=== PATIENT | female | born 1945 | race Caucasian/White ===

== ENCOUNTER 2021-06-30 14:38 | Inpatient (IN) | payer MEDICARE, SELFPAY ==
[2021-06-30] VITALS (7 sets, daily range): BP systolic 112–125; BP diastolic 52–62; PULSE 82–105; RESP 14–18; TEMP 36.8–37.7; O2SAT 98–100; BMI 30.7
--- NOTE | 2021-06-30 14:58 | XRR_ITS ---
PROCEDURE INFORMATION: Exam: XR Chest Exam date and time: 06/30/2021 2:58 PM Age: 75 years old Clinical indication: Other: Weakness TECHNIQUE: Imaging protocol: XR of the chest. Views: 1 view. COMPARISON: No relevant prior studies available. FINDINGS: Lungs: There is linear atelectasis versus scarring in the left lung base. There is also some subtle ground-glass opacity in the left lung base concerning for early pneumonic infiltrate. The right lung is clear. Pleural spaces: Trace left pleural effusion versus pleural thickening is noted. Heart/Mediastinum: Unremarkable. No cardiomegaly. Bones/joints: No acute abnormality. XR/XR chest 1V portable [id number] IMPRESSION: 1. There is linear atelectasis versus scarring in the left lung base. 2. Linear atelectasis versus scarring left lower lobe with adjacent mild ground-glass opacity concerning for pneumonic infiltrate.
--- NOTE | 2021-06-30 14:58 | ECG_ITS ---
[facility] Test Date: 2021-06-30 Pat Name: Tamica Baltazar Department: Room: Gender: Female [employer]: : [id number] Requested By: Wilmer Antonio Order Number: [id number] Reading MD: Georgia Ulrich M.D. Measurements Intervals [place] Rate: 97 P: 76 MA: 158 QRS: 57 QRSD: 85 T: 100 QT: 362 QTc: 460 Interpretive Statements SINUS RHYTHM ST DEVIATION AND MODERATE T-WAVE ABNORMALITY, CONSIDER LATERAL ISCHEMIA [-0.1+ mV T-WAVE IN I/aVL/V5/V6] No previous ECG available for comparison Electronically Signed On 07-01-2021 19:12:29 CDT by Georgia Ulrich M.D. [email or web address]
--- NOTE | 2021-06-30 15:09 | W.ED.WEAKNES ---
Documented by User: MANINDER Marquez 06/30/21 15:50 HPI - Weakness General: Chief complaint: Weakness Stated complaint: GENERALIZED WEAKNESS/ CAN'T USE LEGS Time Seen by Provider: 06/30/21 14:42 History of Present Illness: HPI Narrative: Patient arrives with complaint of weakness for the last 3 months. Says she is got rheumatoid arthritis has been off some of her medicine. Said it just hurts for her to move. The last 3 days it has been worse. States she could not really get out of a chair today because it hurt in her legs and she just felt weak. Feels he might be anemic. MD Complaint: difficulty walking Onset (ago): month(s) Duration: constant and progressively worsening Location: generalized Associated symptoms: Reports no associated symptoms; Denies chest pain, chills, easy bruising, fever(s), headache(s), nausea or vomiting Review of Systems Const: Reports: other (Weakness); Denies: fever(s), chills or body aches Eyes: Denies: change in vision or blurry vision ENMT: Denies: throat pain or nasal congestion Card: Denies: chest pain or dyspnea on exertion Resp: Denies: dyspnea, productive cough or non-productive cough GI: Denies: abdominal pain, nausea or vomiting Musc: Denies: extremity pain Skin/Breast: Denies: rash Neuro: Denies: headache(s) Psych: Denies: anxiety or depression Regan/Lymph: Denies: easy bruising PFSH ED PFSH: Medical History Hypertension Intermittent atrial fibrillation Rheumatoid arthritis Surgical History Hx of cholecystectomy Physical Exam Const: COMMON NORMALS: no acute distress, average body habitus and patient oriented x3 HENMT: COMMON NORMALS: normocephalic HEAD & SCALP: normal to inspection and normocephalic FACE & SINUS: normal facial exam Eye: COMMON NORMALS: conjunctivae normal GENERAL EYE: appearance normal, both eyes and all related structures CONJUNCTIVA: Yes conjunctivae normal Neck/C-Spine: COMMON NORMALS: no JVD Chest: COMMONS NORMALS: normal inspection of the chest Resp: COMMON NORMALS: normal respiratory effort and clear to auscultation bilaterally AUSCULTATION: clear to auscultation bilaterally Cardio: COMMON NORMALS: no JVD, regular rate and regular rhythm RATE: regular rate RHYTHM: regular rhythm GI: COMMON NORMALS: Normal to inspection, nondistended, normoactive bowel sounds present Extremity: COMMON NORMALS: normal to inspection and full ROM NARRATIVE EXTREMITY EXAM: Able to move legs Neuro: COMMON NORMALS: patient oriented x3 Course Vital Signs: Vital signs: Vital Signs Temperature 97.7 F 07/02/21 11:12 Pulse Rate 76 07/02/21 11:12 Respiratory Rate 16 07/02/21 11:12 Blood Pressure 100/54 07/02/21 11:12 Pulse Oximetry 98 07/02/21 11:12 MDM - Weakness Lab Data: Labs: Lab Results 06/30/21 06/30/21 06/30/21 Range/Units 16:24 16:24 16:24 WBC 11.5 H (4.0-10.0) 10^3/ uL RBC 1.30 L (4.1-5.3) 10^6/u L Hgb 3.9 L* (11.5-15.3) g/dL Hct 13.1 L* (37.0-47.0) % MCV 100.8 H (81-99) fl MCH 30.0 (28.0-34.0) pg MCHC 29.8 L (30.0-36.0) g/dL RDW 15.2 H (12.1-15.1) % Plt Count 225 (130-400) 10^3/c mm MPV 10.6 H (7.4-10.4) fL Neut % (Auto) 72.8 % Lymph % (Auto) 15.7 % [place] % (Auto) 10.0 % Eos % (Auto) 0.0 % Baso % (Auto) 0.1 % Reticulocyte % (Au to) (0.5-2.0) % Neut # (Auto) 8.33 H (1.8-7.7) 10^3/u L Lymph # (Auto) 1.8 (0.8-4.8) 10^3/u L [place] # (Auto) 1.2 H (0.2-0.9) 10^3/u L Eos # (Auto) 0.0 (0.0-0.8) 10^3/u L Baso # (Auto) 0.0 (0.0-0.1) 10^3/u L Nucleated RBC % (a uto) 0.9 % Nucleated RBCs # 0.1 /100WBC Retic Production I ndex Haptoglobin (30-200) mg/L PT 16.10 H (12.1-14.9) SECO NDS INR 1.25 H (0.8-1.2) Sodium 136 (136-145) mmol/L Potassium 4.2 (3.5-5.1) mmol/L Chloride 104 (98-107) mmol/L Carbon Dioxide 24 (22-29) mmol/L Anion Gap 12.2 (5-19) BUN 32 H (8-23) mg/dL Creatinine 0.8 (0.5-0.9) mg/dL GFR Calculation Not Reportable Glucose 119 H (65-115) mg/dL Calculated Osmolal ity 290 (285-295) mOsm/k g Calcium 8.2 L (8.5-10.5) mg/dL Iron (37-145) ug/dL TIBC mcg/dl % Saturation (20-50) % Unsat Iron Binding (112-347) ug/dL Ferritin (15-150) ng/mL GGT (5-36) U/L AST (0-32) U/L ALT (0-33) U/L Lactate Dehydrogen ase (135-214) U/L Creatine Kinase 29 (26-192) U/L Troponin T Baselin e (0-10) ng/L C-Reactive Protein 0.9 (0.0-4.9) mg/L Vitamin B12 (232-1245) pg/mL Folate (4.8-37.3) ng/mL Blood Type Rho(D) Type Antibody Screen Crossmatch 06/30/21 06/30/21 06/30/21 Range/Units 16:24 16:24 16:24 WBC (4.0-10.0) 10^3/ uL RBC (4.1-5.3) 10^6/u L Hgb (11.5-15.3) g/dL Hct (37.0-47.0) % MCV (81-99) fl MCH (28.0-34.0) pg MCHC (30.0-36.0) g/dL RDW (12.1-15.1) % Plt Count (130-400) 10^3/c mm MPV (7.4-10.4) fL Neut % (Auto) % Lymph % (Auto) % [place] % (Auto) % Eos % (Auto) % Baso % (Auto) % Reticulocyte % (Au to) (0.5-2.0) % Neut # (Auto) (1.8-7.7) 10^3/u L Lymph # (Auto) (0.8-4.8) 10^3/u L [place] # (Auto) (0.2-0.9) 10^3/u L Eos # (Auto) (0.0-0.8) 10^3/u L Baso # (Auto) (0.0-0.1) 10^3/u L Nucleated RBC % (a uto) % Nucleated RBCs # /100WBC Retic Production I ndex Haptoglobin 129.0 (30-200) mg/L PT (12.1-14.9) SECO NDS INR (0.8-1.2) Sodium (136-145) mmol/L Potassium (3.5-5.1) mmol/L Chloride (98-107) mmol/L Carbon Dioxide (22-29) mmol/L Anion Gap (5-19) BUN (8-23) mg/dL Creatinine (0.5-0.9) mg/dL GFR Calculation Glucose (65-115) mg/dL Calculated Osmolal ity (285-295) mOsm/k g Calcium (8.5-10.5) mg/dL Iron 9 L (37-145) ug/dL TIBC 295 mcg/dl % Saturation 3.0 L (20-50) % Unsat Iron Binding 286 (112-347) ug/dL Ferritin 8 L (15-150) ng/mL GGT 10 (5-36) U/L AST 14 (0-32) U/L ALT 11 (0-33) U/L Lactate Dehydrogen ase 119 L (135-214) U/L Creatine Kinase (26-192) U/L Troponin T Baselin e 12 H (0-10) ng/L C-Reactive Protein (0.0-4.9) mg/L Vitamin B12 618 (232-1245) pg/mL Folate (4.8-37.3) ng/mL Blood Type Rho(D) Type Antibody Screen Crossmatch 06/30/21 06/30/21 06/30/21 Range/Units 16:24 16:24 17:42 WBC (4.0-10.0) 10^3/ uL RBC (4.1-5.3) 10^6/u L Hgb (11.5-15.3) g/dL Hct (37.0-47.0) % MCV (81-99) fl MCH (28.0-34.0) pg MCHC (30.0-36.0) g/dL RDW (12.1-15.1) % Plt Count (130-400) 10^3/c mm MPV (7.4-10.4) fL Neut % (Auto) % Lymph % (Auto) % [place] % (Auto) % Eos % (Auto) % Baso % (Auto) % Reticulocyte % (Au to) 10.6 H (0.5-2.0) % Neut # (Auto) (1.8-7.7) 10^3/u L Lymph # (Auto) (0.8-4.8) 10^3/u L [place] # (Auto) (0.2-0.9) 10^3/u L Eos # (Auto) (0.0-0.8) 10^3/u L Baso # (Auto) (0.0-0.1) 10^3/u L Nucleated RBC % (a uto) % Nucleated RBCs # /100WBC Retic Production I ndex Haptoglobin (30-200) mg/L PT (12.1-14.9) SECO NDS INR (0.8-1.2) Sodium (136-145) mmol/L Potassium (3.5-5.1) mmol/L Chloride (98-107) mmol/L Carbon Dioxide (22-29) mmol/L Anion Gap (5-19) BUN (8-23) mg/dL Creatinine (0.5-0.9) mg/dL GFR Calculation Glucose (65-115) mg/dL Calculated Osmolal ity (285-295) mOsm/k g Calcium (8.5-10.5) mg/dL Iron (37-145) ug/dL TIBC mcg/dl % Saturation (20-50) % Unsat Iron Binding (112-347) ug/dL Ferritin (15-150) ng/mL GGT (5-36) U/L AST (0-32) U/L ALT (0-33) U/L Lactate Dehydrogen ase (135-214) U/L Creatine Kinase (26-192) U/L Troponin T Baselin e (0-10) ng/L C-Reactive Protein (0.0-4.9) mg/L Vitamin B12 (232-1245) pg/mL Folate > 20.0 (4.8-37.3) ng/mL Blood Type O Positive Rho(D) Type Positive Antibody Screen Negative Crossmatch See Detail 06/30/21 Range/Units 17:42 WBC (4.0-10.0) 10^3/ uL RBC (4.1-5.3) 10^6/u L Hgb (11.5-15.3) g/dL Hct 12.8 L* (37.0-47.0) % MCV (81-99) fl MCH (28.0-34.0) pg MCHC (30.0-36.0) g/dL RDW (12.1-15.1) % Plt Count (130-400) 10^3/c mm MPV (7.4-10.4) fL Neut % (Auto) % Lymph % (Auto) % [place] % (Auto) % Eos % (Auto) % Baso % (Auto) % Reticulocyte % (Au to) 10.8 H (0.5-2.0) % Neut # (Auto) (1.8-7.7) 10^3/u L Lymph # (Auto) (0.8-4.8) 10^3/u L [place] # (Auto) (0.2-0.9) 10^3/u L Eos # (Auto) (0.0-0.8) 10^3/u L Baso # (Auto) (0.0-0.1) 10^3/u L Nucleated RBC % (a uto) % Nucleated RBCs # /100WBC Retic Production I ndex 3.46 Haptoglobin (30-200) mg/L PT (12.1-14.9) SECO NDS INR (0.8-1.2) Sodium (136-145) mmol/L Potassium (3.5-5.1) mmol/L Chloride (98-107) mmol/L Carbon Dioxide (22-29) mmol/L Anion Gap (5-19) BUN (8-23) mg/dL Creatinine (0.5-0.9) mg/dL GFR Calculation Glucose (65-115) mg/dL Calculated Osmolal ity (285-295) mOsm/k g Calcium (8.5-10.5) mg/dL Iron (37-145) ug/dL TIBC mcg/dl % Saturation (20-50) % Unsat Iron Binding (112-347) ug/dL Ferritin (15-150) ng/mL GGT (5-36) U/L AST (0-32) U/L ALT (0-33) U/L Lactate Dehydrogen ase (135-214) U/L Creatine Kinase (26-192) U/L Troponin T Baselin e (0-10) ng/L C-Reactive Protein (0.0-4.9) mg/L Vitamin B12 (232-1245) pg/mL Folate (4.8-37.3) ng/mL Blood Type Rho(D) Type Antibody Screen Crossmatch EKG Data^: EKG 1: EKG interpretation date: 06/30/21 EKG interpretation time: 15:40 Computer generated interpretation: Sinus rhythm with ST deviation moderate T wave abnormality slight elevation in aVR V1 depression V4 V5 ventricular rate 97 bpm ND interval 158 ms QRS duration 85 ms QT 362 ms Discharge Plan Discharge Patient Disposition: Admitted As Inpatient Admit Provider: Linh Hough Clinical Impression: Severe anemia Condition: Stable Sign Out Sign Out Data: Patient Sign Out occurred on 06/30/21 at 17:04. Patient's care was discussed, and care was transferred from to ALETHEA Gao. Coding Level of Care Code ED Inspector And Hand Packager for Chg Fwd Exam Comprehensive Documented by User: ALETHEA Gao 07/01/21 03:46 HPI - Weakness General: Chief complaint: Weakness Stated complaint: GENERALIZED WEAKNESS/ CAN'T USE LEGS Time Seen by Provider: 06/30/21 14:42 History of Present Illness: HPI Narrative: Patient states that she has had some bleeding hemorrhoids for the past 3 months as well. Every time she had a bowel movement she would have red blood in the toilet and when she wiped. Bleeding only occurred when having a bowel movement and denies any bleeding in between bowel movements. She says the bleeding during a bowel movement stopped approximately 3 to 4 days ago. Patient did states she has been taking Eliquis for almost 2 years now. She reports having generalized weakness and aches and pain in extremities when active. Review of Systems GI: Reports: hematochezia (Reports hemorrhoids and bloody stool for 3 months-resolved 4 days ago) PENDING SALE TO [facility] ED PFSH: Medical History Hypertension Intermittent atrial fibrillation Rheumatoid arthritis Surgical History Hx of cholecystectomy Course Consultations: Consultation #1: I contacted Dr. Hough and told her about patient case and her hemoglobin level of 3.9. She wanted me to have patient admitted and to order a CT of the chest abdomen and pelvis. Vital Signs: Vital signs: Vital Signs Temperature 97.7 F 07/02/21 11:12 Pulse Rate 76 07/02/21 11:12 Respiratory Rate 16 07/02/21 11:12 Blood Pressure 100/54 07/02/21 11:12 Pulse Oximetry 98 07/02/21 11:12 MDM - Weakness MDM Narrative: Medical decision making narrative: I took over patient care from Wilmer Antonio is a nurse practitioner at 5 PM. Patient has a history of A. fib and is currently on Eliquis. He performed initial history physical exam and lab and imaging work-up. Patient is here in the ED for generalized weakness and pain whenever she is up moving around. She also reports having some hemorrhoids that have been bleeding whenever she has a bowel movement for the past 3 months but have since resolved approximately 4 days ago. Denies any bleeding from her rectum in between bowel movements. Patient's hemoglobin was 3.9 and her hematocrit was 13.1. Rest of CBC and CMP were unremarkable. I performed a type and screen and had 2 units of RBCs transfused and started here in the ED. I contacted Dr. Reyes of the hospitalist on-call and told her about patient case and she accepted admission. She wanted me also to add a CT of her chest abdomen and pelvis which came back with no acute findings. I talked with Dr. Hudson and told him about Dr. Hough excepting patient for admission. Dr. Hudson placed the admitting orders. Lab Data: Attestation: I reviewed the patient's lab results. Labs: Lab Results 06/30/21 06/30/21 06/30/21 Range/Units 16:24 16:24 16:24 WBC 11.5 H (4.0-10.0) 10^3/ uL RBC 1.30 L (4.1-5.3) 10^6/u L Hgb 3.9 L* (11.5-15.3) g/dL Hct 13.1 L* (37.0-47.0) % MCV 100.8 H (81-99) fl MCH 30.0 (28.0-34.0) pg MCHC 29.8 L (30.0-36.0) g/dL RDW 15.2 H (12.1-15.1) % Plt Count 225 (130-400) 10^3/c mm MPV 10.6 H (7.4-10.4) fL Neut % (Auto) 72.8 % Lymph % (Auto) 15.7 % [place] % (Auto) 10.0 % Eos % (Auto) 0.0 % Baso % (Auto) 0.1 % Reticulocyte % (Au to) (0.5-2.0) % Neut # (Auto) 8.33 H (1.8-7.7) 10^3/u L Lymph # (Auto) 1.8 (0.8-4.8) 10^3/u L [place] # (Auto) 1.2 H (0.2-0.9) 10^3/u L Eos # (Auto) 0.0 (0.0-0.8) 10^3/u L Baso # (Auto) 0.0 (0.0-0.1) 10^3/u L Nucleated RBC % (a uto) 0.9 % Nucleated RBCs # 0.1 /100WBC Retic Production I ndex Haptoglobin (30-200) mg/L PT 16.10 H (12.1-14.9) SECO NDS INR 1.25 H (0.8-1.2) Sodium 136 (136-145) mmol/L Potassium 4.2 (3.5-5.1) mmol/L Chloride 104 (98-107) mmol/L Carbon Dioxide 24 (22-29) mmol/L Anion Gap 12.2 (5-19) BUN 32 H (8-23) mg/dL Creatinine 0.8 (0.5-0.9) mg/dL GFR Calculation Not Reportable Glucose 119 H (65-115) mg/dL Calculated Osmolal ity 290 (285-295) mOsm/k g Calcium 8.2 L (8.5-10.5) mg/dL Iron (37-145) ug/dL TIBC mcg/dl % Saturation (20-50) % Unsat Iron Binding (112-347) ug/dL Ferritin (15-150) ng/mL GGT (5-36) U/L AST (0-32) U/L ALT (0-33) U/L Lactate Dehydrogen ase (135-214) U/L Creatine Kinase 29 (26-192) U/L Troponin T Baselin e (0-10) ng/L C-Reactive Protein 0.9 (0.0-4.9) mg/L Vitamin B12 (232-1245) pg/mL Folate (4.8-37.3) ng/mL Blood Type Rho(D) Type Antibody Screen Crossmatch 06/30/21 06/30/21 06/30/21 Range/Units 16:24 16:24 16:24 WBC (4.0-10.0) 10^3/ uL RBC (4.1-5.3) 10^6/u L Hgb (11.5-15.3) g/dL Hct (37.0-47.0) % MCV (81-99) fl MCH (28.0-34.0) pg MCHC (30.0-36.0) g/dL RDW (12.1-15.1) % Plt Count (130-400) 10^3/c mm MPV (7.4-10.4) fL Neut % (Auto) % Lymph % (Auto) % [place] % (Auto) % Eos % (Auto) % Baso % (Auto) % Reticulocyte % (Au to) (0.5-2.0) % Neut # (Auto) (1.8-7.7) 10^3/u L Lymph # (Auto) (0.8-4.8) 10^3/u L [place] # (Auto) (0.2-0.9) 10^3/u L Eos # (Auto) (0.0-0.8) 10^3/u L Baso # (Auto) (0.0-0.1) 10^3/u L Nucleated RBC % (a uto) % Nucleated RBCs # /100WBC Retic Production I ndex Haptoglobin 129.0 (30-200) mg/L PT (12.1-14.9) SECO NDS INR (0.8-1.2) Sodium (136-145) mmol/L Potassium (3.5-5.1) mmol/L Chloride (98-107) mmol/L Carbon Dioxide (22-29) mmol/L Anion Gap (5-19) BUN (8-23) mg/dL Creatinine (0.5-0.9) mg/dL GFR Calculation Glucose (65-115) mg/dL Calculated Osmolal ity (285-295) mOsm/k g Calcium (8.5-10.5) mg/dL Iron 9 L (37-145) ug/dL TIBC 295 mcg/dl % Saturation 3.0 L (20-50) % Unsat Iron Binding 286 (112-347) ug/dL Ferritin 8 L (15-150) ng/mL GGT 10 (5-36) U/L AST 14 (0-32) U/L ALT 11 (0-33) U/L Lactate Dehydrogen ase 119 L (135-214) U/L Creatine Kinase (26-192) U/L Troponin T Baselin e 12 H (0-10) ng/L C-Reactive Protein (0.0-4.9) mg/L Vitamin B12 618 (232-1245) pg/mL Folate (4.8-37.3) ng/mL Blood Type Rho(D) Type Antibody Screen Crossmatch 06/30/21 06/30/21 06/30/21 Range/Units 16:24 16:24 17:42 WBC (4.0-10.0) 10^3/ uL RBC (4.1-5.3) 10^6/u L Hgb (11.5-15.3) g/dL Hct (37.0-47.0) % MCV (81-99) fl MCH (28.0-34.0) pg MCHC (30.0-36.0) g/dL RDW (12.1-15.1) % Plt Count (130-400) 10^3/c mm MPV (7.4-10.4) fL Neut % (Auto) % Lymph % (Auto) % [place] % (Auto) % Eos % (Auto) % Baso % (Auto) % Reticulocyte % (Au to) 10.6 H (0.5-2.0) % Neut # (Auto) (1.8-7.7) 10^3/u L Lymph # (Auto) (0.8-4.8) 10^3/u L [place] # (Auto) (0.2-0.9) 10^3/u L Eos # (Auto) (0.0-0.8) 10^3/u L Baso # (Auto) (0.0-0.1) 10^3/u L Nucleated RBC % (a uto) % Nucleated RBCs # /100WBC Retic Production I ndex Haptoglobin (30-200) mg/L PT (12.1-14.9) SECO NDS INR (0.8-1.2) Sodium (136-145) mmol/L Potassium (3.5-5.1) mmol/L Chloride (98-107) mmol/L Carbon Dioxide (22-29) mmol/L Anion Gap (5-19) BUN (8-23) mg/dL Creatinine (0.5-0.9) mg/dL GFR Calculation Glucose (65-115) mg/dL Calculated Osmolal ity (285-295) mOsm/k g Calcium (8.5-10.5) mg/dL Iron (37-145) ug/dL TIBC mcg/dl % Saturation (20-50) % Unsat Iron Binding (112-347) ug/dL Ferritin (15-150) ng/mL GGT (5-36) U/L AST (0-32) U/L ALT (0-33) U/L Lactate Dehydrogen ase (135-214) U/L Creatine Kinase (26-192) U/L Troponin T Baselin e (0-10) ng/L C-Reactive Protein (0.0-4.9) mg/L Vitamin B12 (232-1245) pg/mL Folate > 20.0 (4.8-37.3) ng/mL Blood Type O Positive Rho(D) Type Positive Antibody Screen Negative Crossmatch See Detail 06/30/21 Range/Units 17:42 WBC (4.0-10.0) 10^3/ uL RBC (4.1-5.3) 10^6/u L Hgb (11.5-15.3) g/dL Hct 12.8 L* (37.0-47.0) % MCV (81-99) fl MCH (28.0-34.0) pg MCHC (30.0-36.0) g/dL RDW (12.1-15.1) % Plt Count (130-400) 10^3/c mm MPV (7.4-10.4) fL Neut % (Auto) % Lymph % (Auto) % [place] % (Auto) % Eos % (Auto) % Baso % (Auto) % Reticulocyte % (Au to) 10.8 H (0.5-2.0) % Neut # (Auto) (1.8-7.7) 10^3/u L Lymph # (Auto) (0.8-4.8) 10^3/u L [place] # (Auto) (0.2-0.9) 10^3/u L Eos # (Auto) (0.0-0.8) 10^3/u L Baso # (Auto) (0.0-0.1) 10^3/u L Nucleated RBC % (a uto) % Nucleated RBCs # /100WBC Retic Production I ndex 3.46 Haptoglobin (30-200) mg/L PT (12.1-14.9) SECO NDS INR (0.8-1.2) Sodium (136-145) mmol/L Potassium (3.5-5.1) mmol/L Chloride (98-107) mmol/L Carbon Dioxide (22-29) mmol/L Anion Gap (5-19) BUN (8-23) mg/dL Creatinine (0.5-0.9) mg/dL GFR Calculation Glucose (65-115) mg/dL Calculated Osmolal ity (285-295) mOsm/k g Calcium (8.5-10.5) mg/dL Iron (37-145) ug/dL TIBC mcg/dl % Saturation (20-50) % Unsat Iron Binding (112-347) ug/dL Ferritin (15-150) ng/mL GGT (5-36) U/L AST (0-32) U/L ALT (0-33) U/L Lactate Dehydrogen ase (135-214) U/L Creatine Kinase (26-192) U/L Troponin T Baselin e (0-10) ng/L C-Reactive Protein (0.0-4.9) mg/L Vitamin B12 (232-1245) pg/mL Folate (4.8-37.3) ng/mL Blood Type Rho(D) Type Antibody Screen Crossmatch Imaging Data^: CXR: Attestation: I personally reviewed and interpreted this imaging study as follows: Radiologist's impression: [address] [id number] ReportSigned Patient: Charisse Baltazar #: [id number]: [id number]#:[id number]/Sex: 75 / FADM Date: 06/30/21Loc: ERRoom/Bed:Attending Dr: Ordering Provider/Ordering MD: Awilda Antonoi Sr, [facility] Date of Service: 06/30/21 Procedure(s): XR chest 1V portable [id number] Accession Number(s): [id number] Report Number: [id number] PROCEDURE INFORMATION: Exam: XR Chest Exam date and time: 06/30/2021 2:58 PM Age: 75 years old Clinical indication: Other: Weakness TECHNIQUE: Imaging protocol: XR of the chest. Views: 1 view. COMPARISON: No relevant prior studies available. FINDINGS: Lungs: There is linear atelectasis versus scarring in the left lung base. There is also some subtle ground-glass opacity in the left lung base concerning for early pneumonic infiltrate. The right lung is clear. Pleural spaces: Trace left pleural effusion versus pleural thickening is noted. Heart/Mediastinum: Unremarkable. No cardiomegaly. Bones/joints: No acute abnormality. XR/XR chest 1V portable [id number] IMPRESSION: 1. There is linear atelectasis versus scarring in the left lung base. 2. Linear atelectasis versus scarring left lower lobe with adjacent mild ground-glass opacity concerning for pneumonic infiltrate. Dictated By:Kyra Pinedaigned By:Rodri Pineda Date/Time:06/30/21 1623DD/ [address]: Attestation: I personally reviewed and interpreted this imaging study as follows: Radiologist's impression: [address] [id number] Scan ReportSigned Patient: Charisse Baltazar #: [id number]: [id number]#:[id number]/Sex: 75 / FADM Date: 06/30/21Loc: ERRoom/Bed:Attending Dr: Ordering Provider/Ordering MD: Edin Tineo Date of Service: 06/30/21 Procedure(s): CT chest abd pel w con* Accession Number(s): [id number] Report Number: [id number] PROCEDURE INFORMATION: Exam: CT Chest With Contrast; Diagnostic Exam date and time: 06/30/2021 7:21 PM Age: 75 years old Clinical indication: Constipation and nausea and vomiting; Other: Weakness; Prior surgery; Surgery type: Gb, tubal TECHNIQUE: Imaging protocol: Diagnostic computed tomography of the chest with contrast. Radiation optimization: All CT scans at this facility use at least one of these dose optimization techniques: automated exposure control; mA and/or kV adjustment per patient size (includes targeted exams where dose is matched to clinical indication); or iterative reconstruction. Contrast material: OMNI 300; Contrast volume: 95 ml; Contrast route: INTRAVENOUS (IV); COMPARISON: CR (CHEST, ) 06/30/2021 3:06 PM RADIATION DOSE METRICS: Total DLP (mGy-cm): 1335.23 FINDINGS: Lungs: Unremarkable. No consolidation. No masses. Pleural spaces: Unremarkable. No pneumothorax. No pleural effusion. Heart: Unremarkable. No cardiomegaly. No pericardial effusion. Aorta: Unremarkable. No aortic aneurysm. Lymph nodes: Unremarkable. No enlarged lymph nodes. Bones/joints: Unremarkable. No acute fracture. Soft tissues: Unremarkable. IMPRESSION: No acute findings. PROCEDURE INFORMATION: Exam: CT Abdomen And Pelvis With Contrast Exam date and time: 06/30/2021 7:21 PM Age: 75 years old Clinical indication: Constipation and nausea and vomiting; Other: Weakness; Prior surgery; Surgery type: Gb, tubal TECHNIQUE: Imaging protocol: Computed tomography of the abdomen and pelvis with contrast. Radiation optimization: All CT scans at this facility use at least one of these dose optimization techniques: automated exposure control; mA and/or kV adjustment per patient size (includes targeted exams where dose is matched to clinical indication); or iterative reconstruction. Contrast material: OMNI 300; Contrast volume: 95 ml; Contrast route: INTRAVENOUS (IV); COMPARISON: CR (CHEST, ) 06/30/2021 3:06 PM RADIATION DOSE METRICS: Total DLP (mGy-cm): 1335.23 FINDINGS: Liver: Normal. No mass. Gallbladder and bile ducts: Cholecystectomy. Nondilated biliary system. Pancreas: Normal. No ductal dilation. Spleen: Normal. No splenomegaly. Adrenal glands: Normal. No mass. Kidneys and ureters: Mild diffuse bilateral renal cortical volume loss worse on left than right. No hydronephrosis or renal stones. Stomach and bowel: Large fecal volume. No inflammatory bowel wall thickening changes. Negative for bowel obstruction or perforation. No focal bowel wall mass. Appendix: No evidence of appendicitis. Intraperitoneal space: Unremarkable. No free air. No significant fluid collection. Vasculature: Unremarkable. No abdominal aortic aneurysm. Lymph nodes: Unremarkable. No enlarged lymph nodes. Urinary bladder: Unremarkable as visualized. Reproductive: Unremarkable as visualized. Bones/joints: Unremarkable. No acute fracture. Soft tissues: Unremarkable. CT/CT chest abd pel w con* IMPRESSION: Negative for acute abdominopelvic pathology. Radiation Dose CTDIVOL = (mGy): DLP = 1335.23~1335.23 (mGy-cm) Dictated By:Santosh Cornell By:Santosh Cornell Date/Time:06/30/21 2102DD/ 2100 Discharge Plan Discharge Patient Disposition: Admitted As Inpatient Admit Provider: Linh Hough Clinical Impression: Severe anemia Condition: Stable Sign Out Sign Out Data: Patient Sign Out occurred on 06/30/21 at 17:04. Patient's care was discussed, and care was transferred from to [facility]. Coding Level of Care Code ED Inspector And Hand Packager for Chg Fwd Exam Comprehensive Documented by User: Carli Hudson MD 07/02/21 11:54 HPI - Weakness General: Chief complaint: Weakness Stated complaint: GENERALIZED WEAKNESS/ CAN'T USE LEGS Time Seen by Provider: 06/30/21 14:42 PFSH ED PFSH: Medical History Hypertension Intermittent atrial fibrillation Rheumatoid arthritis Surgical History Hx of cholecystectomy Course Vital Signs: Vital signs: Vital Signs Temperature 97.7 F 07/02/21 11:12 Pulse Rate 76 07/02/21 11:12 Respiratory Rate 16 07/02/21 11:12 Blood Pressure 100/54 07/02/21 11:12 Pulse Oximetry 98 07/02/21 11:12 MDM - Weakness Lab Data: Labs: Lab Results 06/30/21 06/30/21 06/30/21 Range/Units 16:24 16:24 16:24 WBC 11.5 H (4.0-10.0) 10^3/ uL RBC 1.30 L (4.1-5.3) 10^6/u L Hgb 3.9 L* (11.5-15.3) g/dL Hct 13.1 L* (37.0-47.0) % MCV 100.8 H (81-99) fl MCH 30.0 (28.0-34.0) pg MCHC 29.8 L (30.0-36.0) g/dL RDW 15.2 H (12.1-15.1) % Plt Count 225 (130-400) 10^3/c mm MPV 10.6 H (7.4-10.4) fL Neut % (Auto) 72.8 % Lymph % (Auto) 15.7 % [place] % (Auto) 10.0 % Eos % (Auto) 0.0 % Baso % (Auto) 0.1 % Reticulocyte % (Au to) (0.5-2.0) % Neut # (Auto) 8.33 H (1.8-7.7) 10^3/u L Lymph # (Auto) 1.8 (0.8-4.8) 10^3/u L [place] # (Auto) 1.2 H (0.2-0.9) 10^3/u L Eos # (Auto) 0.0 (0.0-0.8) 10^3/u L Baso # (Auto) 0.0 (0.0-0.1) 10^3/u L Nucleated RBC % (a uto) 0.9 % Nucleated RBCs # 0.1 /100WBC Retic Production I ndex Haptoglobin (30-200) mg/L PT 16.10 H (12.1-14.9) SECO NDS INR 1.25 H (0.8-1.2) Sodium 136 (136-145) mmol/L Potassium 4.2 (3.5-5.1) mmol/L Chloride 104 (98-107) mmol/L Carbon Dioxide 24 (22-29) mmol/L Anion Gap 12.2 (5-19) BUN 32 H (8-23) mg/dL Creatinine 0.8 (0.5-0.9) mg/dL GFR Calculation Not Reportable Glucose 119 H (65-115) mg/dL Calculated Osmolal ity 290 (285-295) mOsm/k g Calcium 8.2 L (8.5-10.5) mg/dL Iron (37-145) ug/dL TIBC mcg/dl % Saturation (20-50) % Unsat Iron Binding (112-347) ug/dL Ferritin (15-150) ng/mL GGT (5-36) U/L AST (0-32) U/L ALT (0-33) U/L Lactate Dehydrogen ase (135-214) U/L Creatine Kinase 29 (26-192) U/L Troponin T Baselin e (0-10) ng/L C-Reactive Protein 0.9 (0.0-4.9) mg/L Vitamin B12 (232-1245) pg/mL Folate (4.8-37.3) ng/mL Blood Type Rho(D) Type Antibody Screen Crossmatch 06/30/21 06/30/21 06/30/21 Range/Units 16:24 16:24 16:24 WBC (4.0-10.0) 10^3/ uL RBC (4.1-5.3) 10^6/u L Hgb (11.5-15.3) g/dL Hct (37.0-47.0) % MCV (81-99) fl MCH (28.0-34.0) pg MCHC (30.0-36.0) g/dL RDW (12.1-15.1) % Plt Count (130-400) 10^3/c mm MPV (7.4-10.4) fL Neut % (Auto) % Lymph % (Auto) % [place] % (Auto) % Eos % (Auto) % Baso % (Auto) % Reticulocyte % (Au to) (0.5-2.0) % Neut # (Auto) (1.8-7.7) 10^3/u L Lymph # (Auto) (0.8-4.8) 10^3/u L [place] # (Auto) (0.2-0.9) 10^3/u L Eos # (Auto) (0.0-0.8) 10^3/u L Baso # (Auto) (0.0-0.1) 10^3/u L Nucleated RBC % (a uto) % Nucleated RBCs # /100WBC Retic Production I ndex Haptoglobin 129.0 (30-200) mg/L PT (12.1-14.9) SECO NDS INR (0.8-1.2) Sodium (136-145) mmol/L Potassium (3.5-5.1) mmol/L Chloride (98-107) mmol/L Carbon Dioxide (22-29) mmol/L Anion Gap (5-19) BUN (8-23) mg/dL Creatinine (0.5-0.9) mg/dL GFR Calculation Glucose (65-115) mg/dL Calculated Osmolal ity (285-295) mOsm/k g Calcium (8.5-10.5) mg/dL Iron 9 L (37-145) ug/dL TIBC 295 mcg/dl % Saturation 3.0 L (20-50) % Unsat Iron Binding 286 (112-347) ug/dL Ferritin 8 L (15-150) ng/mL GGT 10 (5-36) U/L AST 14 (0-32) U/L ALT 11 (0-33) U/L Lactate Dehydrogen ase 119 L (135-214) U/L Creatine Kinase (26-192) U/L Troponin T Baselin e 12 H (0-10) ng/L C-Reactive Protein (0.0-4.9) mg/L Vitamin B12 618 (232-1245) pg/mL Folate (4.8-37.3) ng/mL Blood Type Rho(D) Type Antibody Screen Crossmatch 06/30/21 06/30/21 06/30/21 Range/Units 16:24 16:24 17:42 WBC (4.0-10.0) 10^3/ uL RBC (4.1-5.3) 10^6/u L Hgb (11.5-15.3) g/dL Hct (37.0-47.0) % MCV (81-99) fl MCH (28.0-34.0) pg MCHC (30.0-36.0) g/dL RDW (12.1-15.1) % Plt Count (130-400) 10^3/c mm MPV (7.4-10.4) fL Neut % (Auto) % Lymph % (Auto) % [place] % (Auto) % Eos % (Auto) % Baso % (Auto) % Reticulocyte % (Au to) 10.6 H (0.5-2.0) % Neut # (Auto) (1.8-7.7) 10^3/u L Lymph # (Auto) (0.8-4.8) 10^3/u L [place] # (Auto) (0.2-0.9) 10^3/u L Eos # (Auto) (0.0-0.8) 10^3/u L Baso # (Auto) (0.0-0.1) 10^3/u L Nucleated RBC % (a uto) % Nucleated RBCs # /100WBC Retic Production I ndex Haptoglobin (30-200) mg/L PT (12.1-14.9) SECO NDS INR (0.8-1.2) Sodium (136-145) mmol/L Potassium (3.5-5.1) mmol/L Chloride (98-107) mmol/L Carbon Dioxide (22-29) mmol/L Anion Gap (5-19) BUN (8-23) mg/dL Creatinine (0.5-0.9) mg/dL GFR Calculation Glucose (65-115) mg/dL Calculated Osmolal ity (285-295) mOsm/k g Calcium (8.5-10.5) mg/dL Iron (37-145) ug/dL TIBC mcg/dl % Saturation (20-50) % Unsat Iron Binding (112-347) ug/dL Ferritin (15-150) ng/mL GGT (5-36) U/L AST (0-32) U/L ALT (0-33) U/L Lactate Dehydrogen ase (135-214) U/L Creatine Kinase (26-192) U/L Troponin T Baselin e (0-10) ng/L C-Reactive Protein (0.0-4.9) mg/L Vitamin B12 (232-1245) pg/mL Folate > 20.0 (4.8-37.3) ng/mL Blood Type O Positive Rho(D) Type Positive Antibody Screen Negative Crossmatch See Detail 06/30/21 Range/Units 17:42 WBC (4.0-10.0) 10^3/ uL RBC (4.1-5.3) 10^6/u L Hgb (11.5-15.3) g/dL Hct 12.8 L* (37.0-47.0) % MCV (81-99) fl MCH (28.0-34.0) pg MCHC (30.0-36.0) g/dL RDW (12.1-15.1) % Plt Count (130-400) 10^3/c mm MPV (7.4-10.4) fL Neut % (Auto) % Lymph % (Auto) % [place] % (Auto) % Eos % (Auto) % Baso % (Auto) % Reticulocyte % (Au to) 10.8 H (0.5-2.0) % Neut # (Auto) (1.8-7.7) 10^3/u L Lymph # (Auto) (0.8-4.8) 10^3/u L [place] # (Auto) (0.2-0.9) 10^3/u L Eos # (Auto) (0.0-0.8) 10^3/u L Baso # (Auto) (0.0-0.1) 10^3/u L Nucleated RBC % (a uto) % Nucleated RBCs # /100WBC Retic Production I ndex 3.46 Haptoglobin (30-200) mg/L PT (12.1-14.9) SECO NDS INR (0.8-1.2) Sodium (136-145) mmol/L Potassium (3.5-5.1) mmol/L Chloride (98-107) mmol/L Carbon Dioxide (22-29) mmol/L Anion Gap (5-19) BUN (8-23) mg/dL Creatinine (0.5-0.9) mg/dL GFR Calculation Glucose (65-115) mg/dL Calculated Osmolal ity (285-295) mOsm/k g Calcium (8.5-10.5) mg/dL Iron (37-145) ug/dL TIBC mcg/dl % Saturation (20-50) % Unsat Iron Binding (112-347) ug/dL Ferritin (15-150) ng/mL GGT (5-36) U/L AST (0-32) U/L ALT (0-33) U/L Lactate Dehydrogen ase (135-214) U/L Creatine Kinase (26-192) U/L Troponin T Baselin e (0-10) ng/L C-Reactive Protein (0.0-4.9) mg/L Vitamin B12 (232-1245) pg/mL Folate (4.8-37.3) ng/mL Blood Type Rho(D) Type Antibody Screen Crossmatch Discharge Plan Discharge Patient Disposition: Admitted As Inpatient Admit Provider: Linh Hough Clinical Impression: Severe anemia Condition: Stable Sign Out Sign Out Data: Patient Sign Out occurred on 06/30/21 at 17:04. Patient's care was discussed, and care was transferred from to ALETHEA Gao. Coding Level of Care Code ED Inspector And Hand Packager for Chg Fwd Exam Comprehensive
[2021-06-30 17:12] LABS: Basophils % 0.1 %; INR 1.25 (0.8-1.2); Lymphocytes # 1.8 10^3/uL (0.8-4.8); Lymphocytes % 15.7 %; Mean Corpuscular HGB Conc 29.8 g/dL (30.0-36.0); Mean Corpuscular Volume 100.8 fl (81-99); Mean Platelet Volume 10.6 fL (7.4-10.4); Monocytes # 1.2 10^3/uL (0.2-0.9); Neutrophils # 8.33 10^3/uL (1.8-7.7); Neutrophils % 72.8 %; Nucleated Red Blood Cells # 0.1 /100WBC; Nucleated Red Blood Cells % 0.9 %; Platelet Count 225 10^3/cmm (130-400); Red Cell Distribution Width 15.2 % (12.1-15.1); White Blood Count 11.5 10^3/uL (4.0-10.0)
[2021-06-30 17:14] LABS: Anion Gap 12.2 (5-19); Blood Urea Nitrogen 32 mg/dL (8-23); C Reactive Protein 0.9 mg/L (0.0-4.9); Calcium 8.2 mg/dL (8.5-10.5); Carbon Dioxide 24 mmol/L (22-29); Chloride 104 mmol/L (98-107); Creatine Phosphokinase 29 U/L (26-192); Glucose 119 mg/dL (65-115); Osmolality Calculated 290 mOsm/kg (285-295); Potassium 4.2 mmol/L (3.5-5.1); Sodium 136 mmol/L (136-145)
[2021-06-30 17:16] LABS: Hematocrit 13.1 % (37.0-47.0); Hemoglobin 3.9 g/dL (11.5-15.3)
[2021-06-30 17:53] LABS: Troponin(5th) Baseline 12 ng/L (0-10)
--- NOTE | 2021-06-30 19:21 | CTR_ITS ---
PROCEDURE INFORMATION: Exam: CT Chest With Contrast; Diagnostic Exam date and time: 06/30/2021 7:21 PM Age: 75 years old Clinical indication: Constipation and nausea and vomiting; Other: Weakness; Prior surgery; Surgery type: Gb, tubal TECHNIQUE: Imaging protocol: Diagnostic computed tomography of the chest with contrast. Radiation optimization: All CT scans at this facility use at least one of these dose optimization techniques: automated exposure control; mA and/or kV adjustment per patient size (includes targeted exams where dose is matched to clinical indication); or iterative reconstruction. Contrast material: OMNI 300; Contrast volume: 95 ml; Contrast route: INTRAVENOUS (IV); COMPARISON: CR (CHEST, ) 06/30/2021 3:06 PM RADIATION DOSE METRICS: Total DLP (mGy-cm): 1335.23 FINDINGS: Lungs: Unremarkable. No consolidation. No masses. Pleural spaces: Unremarkable. No pneumothorax. No pleural effusion. Heart: Unremarkable. No cardiomegaly. No pericardial effusion. Aorta: Unremarkable. No aortic aneurysm. Lymph nodes: Unremarkable. No enlarged lymph nodes. Bones/joints: Unremarkable. No acute fracture. Soft tissues: Unremarkable. IMPRESSION: No acute findings. PROCEDURE INFORMATION: Exam: CT Abdomen And Pelvis With Contrast Exam date and time: 06/30/2021 7:21 PM Age: 75 years old Clinical indication: Constipation and nausea and vomiting; Other: Weakness; Prior surgery; Surgery type: Gb, tubal TECHNIQUE: Imaging protocol: Computed tomography of the abdomen and pelvis with contrast. Radiation optimization: All CT scans at this facility use at least one of these dose optimization techniques: automated exposure control; mA and/or kV adjustment per patient size (includes targeted exams where dose is matched to clinical indication); or iterative reconstruction. Contrast material: OMNI 300; Contrast volume: 95 ml; Contrast route: INTRAVENOUS (IV); COMPARISON: CR (CHEST, ) 06/30/2021 3:06 PM RADIATION DOSE METRICS: Total DLP (mGy-cm): 1335.23 FINDINGS: Liver: Normal. No mass. Gallbladder and bile ducts: Cholecystectomy. Nondilated biliary system. Pancreas: Normal. No ductal dilation. Spleen: Normal. No splenomegaly. Adrenal glands: Normal. No mass. Kidneys and ureters: Mild diffuse bilateral renal cortical volume loss worse on left than right. No hydronephrosis or renal stones. Stomach and bowel: Large fecal volume. No inflammatory bowel wall thickening changes. Negative for bowel obstruction or perforation. No focal bowel wall mass. Appendix: No evidence of appendicitis. Intraperitoneal space: Unremarkable. No free air. No significant fluid collection. Vasculature: Unremarkable. No abdominal aortic aneurysm. Lymph nodes: Unremarkable. No enlarged lymph nodes. Urinary bladder: Unremarkable as visualized. Reproductive: Unremarkable as visualized. Bones/joints: Unremarkable. No acute fracture. Soft tissues: Unremarkable. CT/CT chest abd pel w con* IMPRESSION: Negative for acute abdominopelvic pathology. Radiation Dose CTDIVOL = (mGy): DLP = 1335.23~1335.23 (mGy-cm)
[2021-06-30] MEDS: iohexol 300 mg/mL 100 mL Btl IV (19:42)
[2021-06-30 19:48] LABS: Alanine Aminotransferase 11 U/L (0-33); Aspartate Amino Transferase 14 U/L (0-32); Lactate Dehydrogenase 119 U/L (135-214)
--- NOTE | 2021-06-30 21:12 | PC.NURSE ---
during transfusion, ptstates she has not been able to void today. Last time pt has voided was 1000am this am. Bladder scan reveals >500ml of urine in bladder. FEED MIXER HELPER notified
[2021-06-30 21:41] LABS: SARS Covid-2 Antigen Negative (Negative)
[2021-06-30 22:02] LABS: Gamma Glutamyl Transferase 10 U/L (5-36)
[2021-06-30 22:13] LABS: Reticulocyte % 10.6 % (0.5-2.0)
[2021-06-30 22:26] LABS: Ferritin 8 ng/mL (15-150); Iron 9 ug/dL (37-145); Total Iron Binding Capacity 295 mcg/dl; Unsaturated Iron Binding 286 ug/dL (112-347)
[2021-06-30 22:41] LABS: Vitamin B12 618 pg/mL (232-1245)
[2021-06-30 22:56] LABS: Troponin 5 6HR 17.24 ng/L (0-10); Troponin 5 6HR Delta 5.24 ng/L (0-12)
[2021-06-30 22:59] LABS: Add Urine Microscopic? NO; Charge for UA Resulting for Rev
[2021-06-30 23:19] LABS: Bilirubin Urine Neg (Negative); Blood Urine Neg (Negative); Glucose Urine UA Norm (Normal); Ketones Urine 1+ (Negative); Leukocyte Esterase Urine Negative (Negative); Nitrate Urine Negative (Negative); Protein Urine Neg (Negative); Urine Appearance Clear (CLEAR); Urine Color Yellow (Yellow); Urobilinogen Urine Norm (Negative); pH Urine 5 (5-7)
[2021-06-30 23:32] LABS: Folate Level > 20.0 ng/mL (4.8-37.3)
[2021-07-01] VITALS (15 sets, daily range): BP systolic 97–127; BP diastolic 54–70; PULSE 77–85; RESP 16–20; TEMP 36.7–37; O2SAT 97–100
--- NOTE | 2021-07-01 01:12 | PM.HP ---
Providers/Chief Complaint Admitting Physician: Linh Hough MD Primary Care Provider: Emmie Taylor MD Chief Complaint: GENERALIZED WEAKNESS/ CAN'T USE LEGS History of Present Illness Tamica Baltazar is a 75 year old female with a past medical history of hypertension, dyslipidemia, rheumatoid arthritis, intermittent A. fib currently on anticoagulation with Eliquis 5 mg twice daily presents today with progressively increasing weakness over the past month. States that she started feeling fatigued approximately 1 month ago, all of her symptoms appear to be correlating with onset of intense hemorrhoidal bleeding around the same time. She did not stop Eliquis at that time. Did not seek any further medical care. However since then reports that she has been experiencing increasing shortness of breath and poor exercise capacity. She is currently unable to even move from bed to bathroom without feeling fatigued and having to sit back down in her bed. Denies any complains of chest pain palpitations. She has lost about 6 pounds since the onset of symptoms. No change in appetite. She has not noticed any melena or further bleeding since that episode of presumed hemorrhoidal bleeding 1 month ago. She is currently constipated. She had appointment to follow-up with her primary care provider in a week from now, however when her sister visited her today she found her to be only feeling weak and brought her into the hospital. Her hemoglobin was noted to be down to 3.9 today. Previously normal baseline according to patient. He denies any past medical history of colon cancer. She had her last colonoscopy 7 years ago, had a few polyps but otherwise unremarkable. Has not had an EGD in the past. Does not recall any recent URI symptoms. No recent change in dose of hydroxychloroquine. Most of her care is out of the [facility] system in [place]. She is vaccinated for COVID 19-2 dose mRNA December 2020 Review of Systems General: Reports: 10 or more systems reviewed and unremarkable except in HPI and below Const: Denies: fever(s), chills or body aches Eyes: Denies: change in vision, blurry vision or photophobia ENMT: Reports: hoarseness; Denies: throat pain, enlarged tonsils, odynophagia or nasal congestion Card: Denies: chest pain, palpitations, irregular heart rhythm, edema, swelling of feet/ankles, lightheadedness, pre-syncope, dyspnea on exertion or orthopnea Resp: Denies: dyspnea, productive cough, non-productive cough, wheezing, stridor, pain on inspiration, change in phlegm color, hemoptysis or chest congestion GI: Denies: abdominal pain, nausea, vomiting, hematemesis, coffee ground emesis, dysphagia, heartburn, diarrhea, constipation, GI cramping, change in stool character, hematochezia or melena : Denies: flank pain, difficulty voiding, dysuria, urinary frequency, urinary urgency, urinary hesitancy or hematuria Musc: Denies: neck pain, back pain, extremity pain, joint swelling, joint warmth or deformity Neuro: Denies: headache(s), numbness in extremities, weakness in extremities, sensory changes, difficulty walking, frequent falls, dizziness, vertigo, behavioral changes, Slurred speech present or seizure-like activity Psych: Denies: anxiety, depression, suicidal ideation or homicidal ideation Endo: Denies: polyuria, polydipsia, tired all the time, cold intolerance or hot flashes Regan/Lymph: Denies: easy bruising or easy bleeding Medications/Allergies Home Medications Medication Instructions Recorded Confirmed Last Taken Type acetaminophen 1,000 mg PO TID PRN 06/30/21 06/30/21 Unknown History apixaban [Eliquis] 5 mg PO BID 06/30/21 06/30/21 06/29/21 History ascorbic acid (vitamin C) [Vitamin 500 mg PO DAILY 06/30/21 06/30/21 06/29/21 History C] biotin 1 mg PO DAILY 06/30/21 06/30/21 06/29/21 History bupropion HCl 150 mg PO DAILY 06/30/21 06/30/21 06/29/21 History calcium 500 mg PO BID 06/30/21 06/30/21 06/29/21 History cetirizine [Zyrtec] 10 mg PO DAILY PRN 06/30/21 06/30/21 Unknown History citalopram 20 mg PO DAILY 06/30/21 06/30/21 06/29/21 History esomeprazole magnesium [Nexium] 20 mg PO DAILY 06/30/21 06/30/21 06/29/21 History hydroxychloroquine 200 mg PO BID 06/30/21 06/30/21 06/29/21 History lactobacillus comb no.10 20,000 mmu cells PO DAILY 06/30/21 06/30/21 06/29/21 History [Probiotic] levothyroxine [Euthyrox] 175 mcg PO DAILY 06/30/21 06/30/21 06/29/21 History losartan 50 mg PO DAILY 06/30/21 06/30/21 06/29/21 History metoprolol tartrate 25 mg PO BID 06/30/21 06/30/21 06/29/21 History multivitamin 1 tab PO DAILY 06/30/21 06/30/21 06/29/21 History pravastatin 20 mg PO DAILY 06/30/21 06/30/21 06/29/21 History Allergies Allergy/AdvReac Type Severity Reaction Status Date / Time codeine Allergy ALGY-Rash Verified 06/30/21 14:58 Penicillins Allergy Unknown Verified 06/30/21 14:58 PFSH Acute PFSH: Medical History (Updated 07/01/21 @ 01:22 by Linh Hough MD) Hypertension Intermittent atrial fibrillation Rheumatoid arthritis Surgical History (Updated 07/01/21 @ 01:22 by Linh Hough MD) Hx of cholecystectomy Vitals/I&O/Wt Last Vital Signs Temp 99.0 F 06/30/21 21:23 Pulse 99 06/30/21 21:23 Resp 18 06/30/21 21:23 BP 119/55 06/30/21 21:23 Pulse Ox 100 06/30/21 21:08 06/30/21 06/30/21 07/01/21 14:59 22:59 06:59 Intake Total 0 / 0 Balance 0 / 0 Weight last 48 hrs Weight 74.843 kg Physical Exam Narrative: EXAM NARRATIVE: General: No acute distress, AO x3 HEENT: PERRLA, pupils bilaterally equal and reactive, pale Chest: Normal vesicular breath sounds, no added sounds, equal good air entry bilaterally CVS: S1-S2 regular, no murmurs, no tachycardia, no gallops, no rubs Abdomen: Soft, nontender, no organomegaly, bowel sounds present Neuro: No focal deficits, no facial deformity, AO x3, power 5/5 in all limbs Urinary Catheter Management^: Pavon: Cath Placed During This Visit: yes Urinary Catheter Date of Insertion: 06/30/21 Urinary Catheter Time of Insertion: 22:45 Data : 06/30/21 16:24 06/30/21 16:24 A&P Assessment and plan (1) Severe anemia: Symptomatic anemia with Hb 3.9 Given timeline of symptoms over past month and hemdynamic stability currently, suspect slowly evolving process rather than acute blood loss over the last 24-48 hrs Patient reports hemorhhoidal bleeding while being on a/c which may have contributed Check FOBT, iron studies incl ferritin, TIBC, TSI, b12, folate, retic count% and RPI, haptoglobin level, added on to pre transfusion labs transfuse 4 units PRBC today Recheck HB after tranfusion GI consult with Dr. Suarez in am for possible UGIE and colonoscopy stop eliquis- to reassess with cardiology as outpatient regarding safety and timing of resumption, currently in sinus rhythm, no acute ST-T wave changes on EKG . Protonix 40mg po BID in the interim Status: Acute (2) Fatigue associated with anemia: Status: Acute Attestations Medical Necessity Statement*: anticipate >2midnight admission for evaluation and management of symptomatic anemia, possible endoscopic evaluation, blood transfusion, serial recheck of Hb Coding Level of Care Code Acute Glove Turner And Former Automatic for Chg Fwd Diagnoses Severe anemia D64.9 Fatigue associated with anemia D64.9
--- NOTE | 2021-07-01 01:53 | PC.NURSE ---
850cc of urine drained from giordano prior to floor transfer
[2021-07-01 07:22] LABS: Basophils # 0.1 10^3/uL (0.0-0.1); Basophils % 0.5 %; Eosinophils % 0.3 %; Hematocrit 23.7 % (37.0-47.0); Lymphocytes # 2.6 10^3/uL (0.8-4.8); Lymphocytes % 22.2 %; Mean Corpuscular HGB Conc 31.6 g/dL (30.0-36.0); Mean Corpuscular Hemoglobin 29.5 pg (28.0-34.0); Mean Corpuscular Volume 93.3 fl (81-99); Mean Platelet Volume 10.7 fL (7.4-10.4); Monocytes # 1.6 10^3/uL (0.2-0.9); Monocytes % 13.5 %; Neutrophils # 7.34 10^3/uL (1.8-7.7); Neutrophils % 62.8 %; Nucleated Red Blood Cells % 0.3 %; Platelet Count 186 10^3/cmm (130-400); Red Blood Count 2.54 10^6/uL (4.1-5.3); Red Cell Distribution Width 14.8 % (12.1-15.1); White Blood Count 11.7 10^3/uL (4.0-10.0)
[2021-07-01 07:53] LABS: Alanine Aminotransferase 11 U/L (0-33); Albumin Level 3.3 g/dL (3.5-5.2); Alkaline Phosphatase 37 IU/L (35-105); Anion Gap 11.9 (5-19); Aspartate Amino Transferase 15 U/L (0-32); Blood Urea Nitrogen 27 mg/dL (8-23); Carbon Dioxide 24 mmol/L (22-29); Chloride 106 mmol/L (98-107); Globulin 1.7 g/dL (1.3-4.6); Glucose 105 mg/dL (65-115); Osmolality Calculated 291 mOsm/kg (285-295); Potassium 3.9 mmol/L (3.5-5.1); Sodium 138 mmol/L (136-145); Thyroid Stimulating Hormone 1.08 uIU/mL (0.27-4.20); Total Bilirubin 0.8 mg/dL (0.15-1.2)
[2021-07-01 08:00] LABS: Hemoglobin 7.5 g/dL (11.5-15.3)
[2021-07-01] MEDS: levothyroxine 175 mcg Tablet PO (08:07)
[2021-07-01] MEDS: atorvastatin 40 mg Tablet 20 MG PO (08:07)
[2021-07-01] MEDS: pantoprazole DR 40 mg Tablet PO ×2 (08:07→17:32)
[2021-07-01] MEDS: metoprolol tartrate 25 mg Tablet PO ×2 (08:08→17:32)
[2021-07-01] MEDS: buPROPion XL (24 HR) 150 mg Tablet PO (08:08)
--- NOTE | 2021-07-01 09:15 | PC.CHAP ---
Pastoral Care Encounter/Spiritual Assessment Type of Contact [] Declined investigations chief visit [] Patient/Family/Request visit [] Outpatient visit [] Follow-up visit [] Physician referral [] Code/Alert [] Routine visit [] Staff referral [] Actively dying [] Patient sleeping [] Family support [] [] Out of room [] Palliative care [] [x] Receiving care in room [] Pre-surgical visit [] Trauma [] Long length of stay [] ICU visit [] Other: Relational/Emotional Strength [] Patient feels connected with others/family/visitors/staff [] Distress [] Loneliness/isolation [] Abandonment Spirituality of Patient [] Person of Radha [] Attends Congregational of their Radha [] Believes in Prayer [] Reads Bible or Restoration materials [] There are Spiritual issues to be addressed Carpet Measurer Interventions [] Prayer [] Active listening [] Non-anxious presence [] Spiritual/emotional support [] Crisis/trauma care [] Spiritual counseling [] Bereavement support [] Provided bereavement packet [] Provided Bible/devotional materials [] Provided toy/stuffed animal, coloring book to patient or family member [] Provided Communion [] Anointing/Sheldon [] Salvation [] Completed spiritual assessment [] Other: Impact on Illness or Injury [] Angry [] Fearful [] Anxious [] Often cries [] Exhaustion [] Unable to work [] Unable to attend orthodox [] Unable to walk/stand [] Unable to read [] Unable to drive [] Unable to eat/drink [] Unable to sleep [] Unable to be with family [] Patient intubated [] Other: Summary Time spent with patient x
[2021-07-01 09:41] LABS: Retic Production Index 3.46; Reticulocyte % 10.8 % (0.5-2.0)
[2021-07-01 09:42] LABS: Hematocrit 12.8 % (37.0-47.0)
--- NOTE | 2021-07-01 10:28 | P.CONIM_ITS ---
Providers/Reason For Consult Consulting Physician/Specialty*: Endoscopy Reason for Consult*: Profoundly low hemoglobin. Attending Physician: Oswaldo Nava Primary Care Provider: Emmie Taylor MD History of Present Illness History of Present Illness Tamica Baltazar is a 75 year old female Who presented to the emergency department with profound weakness. She was noted to be particularly anemic and her evaluation proceeded thus. She was noted to be profoundly iron deficient as well. She states that over the last year she has felt poorly. She sees rectal bleeding occasionally. She has been on Eliquis for about a year, due to an episode of atrial fibrillation. She claims that she has had colonoscopies in the past but is not sure when her last one was. It may have been as long ago as 2004. She denies any constitutional symptoms including weight loss. She does admit to feeling terrible and thought it was just vertigo like her mom used to have. He denies melena or hematemesis. She denies dysphagia or heartburn. She does admit to some epigastric pain. She has had that ever since she had a fairly significant episode of biliary disease where it sounds like they had to put a stent in her common bile duct. This was a year ago. Review of Systems General: Reports: 10 or more systems reviewed and unremarkable except in HPI and below Meds/Allergies Home Medications and Allergies Home Medications Medication Instructions Recorded Confirmed Last Taken Type acetaminophen 1,000 mg PO TID PRN 06/30/21 06/30/21 Unknown History apixaban [Eliquis] 5 mg PO BID 06/30/21 06/30/21 06/29/21 History ascorbic acid (vitamin C) [Vitamin 500 mg PO DAILY 06/30/21 06/30/21 06/29/21 History C] biotin 1 mg PO DAILY 06/30/21 06/30/21 06/29/21 History bupropion HCl 150 mg PO DAILY 06/30/21 06/30/21 06/29/21 History calcium 500 mg PO BID 06/30/21 06/30/21 06/29/21 History cetirizine [Zyrtec] 10 mg PO DAILY PRN 06/30/21 06/30/21 Unknown History citalopram 20 mg PO DAILY 06/30/21 06/30/21 06/29/21 History esomeprazole magnesium [Nexium] 20 mg PO DAILY 06/30/21 06/30/21 06/29/21 History hydroxychloroquine 200 mg PO BID 06/30/21 06/30/21 06/29/21 History lactobacillus comb no.10 20,000 mmu cells PO DAILY 06/30/21 06/30/21 06/29/21 History [Probiotic] levothyroxine [Euthyrox] 175 mcg PO DAILY 06/30/21 06/30/21 06/29/21 History losartan 50 mg PO DAILY 06/30/21 06/30/21 06/29/21 History metoprolol tartrate 25 mg PO BID 06/30/21 06/30/21 06/29/21 History multivitamin 1 tab PO DAILY 06/30/21 06/30/21 06/29/21 History pravastatin 20 mg PO DAILY 06/30/21 06/30/21 06/29/21 History Allergies Allergy/AdvReac Type Severity Reaction Status Date / Time codeine Allergy ALGY-Rash Verified 06/30/21 14:58 Penicillins Allergy Unknown Verified 06/30/21 14:58 Current Medications Current Medications Generic Name Dose Route Start Last Admin Trade Name Freq PRN Reason Stop Dose Admin Atorvastatin Calcium 20 mg 07/01/21 09:00 07/01/21 08:07 Atorvastatin 40 Mg Tablet PO 20 mg DAILY MARK Administration Bupropion HCl 150 mg 07/01/21 09:00 07/01/21 08:08 Bupropion Xl (24 Hr) 150 Mg Tablet PO 150 mg DAILY MARK Administration Citalopram Hydrobromide 20 mg 07/01/21 09:00 07/01/21 09:49 Citalopram 20 Mg Tablet PO Not Given DAILY MARK Levothyroxine Sodium 175 mcg 07/01/21 09:00 07/01/21 08:07 Levothyroxine 175 Mcg Tablet PO 175 mcg DAILY MARK Administration Losartan Potassium 50 mg 07/01/21 09:00 07/01/21 09:49 Losartan 50 Mg Tablet PO Not Given DAILY MARK Metoprolol Tartrate 25 mg 07/01/21 09:00 07/01/21 08:08 Metoprolol Tartrate 25 Mg Tablet PO 25 mg BID MARK Administration Pantoprazole Sodium 40 mg 07/01/21 09:00 07/01/21 08:[address] 40 Mg Tablet PO 40 mg BID MARK Administration PFSH Acute PFSH: Medical History Hypertension Intermittent atrial fibrillation Rheumatoid arthritis Surgical History Hx of cholecystectomy Vitals/I&O/Wt Last Vital Signs Temp 98.2 F 07/01/21 07:46 Pulse 79 07/01/21 07:46 Resp 16 07/01/21 07:46 BP 97/54 07/01/21 07:46 Pulse Ox 97 07/01/21 07:46 06/30/21 07/01/21 07/01/21 22:59 06:59 14:59 Intake Total 0 / 0 0 / 0 960 / 960 Output Total 200 / 200 Balance 0 / 0 -200 / -200 960 / 960 Weight last 48 hrs Weight 165 lb Physical Exam Const: COMMON NORMALS: no acute distress, alert and well nourished GENERAL APPEARANCE: cooperative, well kempt, well developed and well hydrated; does not appear older than stated age ORIENTATION/CONSCIOUSNESS: Yes oriented to person, Yes oriented to place and Yes oriented to time HENMT: COMMON NORMALS: normocephalic, external ears normal and TM's normal bilaterally HEAD & SCALP: normocephalic EXTERNAL EAR: Yes external ears normal TYMPANIC MEMBRANE: TM's normal bilaterally MOUTH: Normal oral and palatal mucosa present Eye: COMMON NORMALS: Equal, round and reactive pupils present GENERAL EYE: appearance normal, both eyes and all related structures and normal light reflex VISUAL ACUITY: Yes acuity normal PUPIL: Yes Equal, round and reactive pupils present DIRECT OPHTHALMOSCOPY: Yes normal light reflex Neck/C-Spine: COMMON NORMALS: full ROM, no lymphadenopathy, supple, no JVD, Thyroid normal and No carotid bruits GENERAL: Yes trachea midline THYROID: Thyroid normal, no masses and nontender Lymph: LYMPHATIC: no lymphadenopathy noted Chest: CHEST: Yes Symmetrical chest wall rise Resp: COMMON NORMALS: normal respiratory effort and clear to auscultation bilaterally AUSCULTATION: clear to auscultation bilaterally Cardio: COMMON NORMALS: no JVD, regular rhythm and No murmurs present (Cardio) PALPATION: normal PMI RHYTHM: regular rhythm GI: COMMON NORMALS: non-tender, no masses and no bruits INSPECTION: Yes normal to inspection, No scar and No striae AUSCULTATION: Yes normoactive bowel sounds PALPATION: No Guarding due to palpation present (GI), No Rigid due to palpation, No Hernia present and No Rebound tenderness present PERCUSSION: normal to percussion RECTAL EXAM: deferred : EXTERNAL FEMALE EXAM: No Hernia present Back/Pelvis: COMMON NORMALS: thoracic and lumbar spine normal to inspection GENERAL BACK: No tenderness Extremity: COMMON NORMALS: normal to inspection, no clubbing, cyanosis or edema and no calf tenderness Neuro: SENSORIUM/ORIENTATION: Yes alert, Yes oriented to person, Yes oriented to place and Yes oriented to time CRANIAL NERVES: Yes CN normal except as noted MOTOR EXAM: 5/5 motor strength present throughout Psych: COMMON NORMALS: mental status grossly normal APPEARANCE: Yes grossly normal and Yes well kempt ATTITUDE: Yes calm Skin: COMMON NORMALS: turgor normal GENERAL SKIN EXAM: turgor normal and no scars LESIONS: no lesions TRAUMA: no lacerations or abrasions Urinary Catheter Management^: Pavon: Cath Placed During This Visit: yes Reason for Continuing Indwelling Catheter: Acute Urinary Retention or Obstruction Urinary Catheter Date of Insertion: 06/30/21 Urinary Catheter Time of Insertion: 22:45 A&P Assessment and plan (1) Severe anemia: We will proceed with panendoscopy during this hospitalization. This is obviously a slow bleeding issue as there is no issues I gone that low acutely without severe symptoms. It may be that it is a combination of poor iron absorption, coupled with chronic slow blood loss. We will #it out with this with endoscopy Status: Acute Coding Level of Care Code Acute Dental Professional for [facility] Fwd Exam Comprehensive Diagnoses Severe anemia D64.9 Comment Please allow Svetlana Diaz to process this chart.
--- NOTE | 2021-07-01 12:37 | PC.NURSE ---
copywriter entered colonoscopy prep order for NPO after MN, bottle of mag citrate at 1200 and 2000, and dulcolax at 1400.
[2021-07-01] MEDS: magnesium citrate Btl 296 mL PO ×2 (13:05→20:16)
[2021-07-01] MEDS: bisacodyl 5 mg Tablet 15 MG PO (14:22)
--- NOTE | 2021-07-01 20:36 | P.PN_ITS ---
Subjective Subjective: Interval history: She is feeling significantly better after PRBC transfusion. So far no further blood in the stool. Working on prep for procedure tomorrow as per their discussion with GI. Vitals/I&O/Wt Last Vital Signs Temp 98.1 F 07/01/21 16:00 Pulse 80 07/01/21 16:00 Resp 18 07/01/21 16:00 BP 113/66 07/01/21 16:00 Pulse Ox 97 07/01/21 16:00 07/01/21 07/01/21 07/01/21 06:59 14:59 22:59 Intake Total 0 / 0 1680 / 1680 480 / 2160 Output Total 200 / 200 750 / 750 Balance -200 / -200 1680 / 1680 -270 / 1410 Weight last 48 hrs Weight 74.843 kg Physical Exam Const: COMMON NORMALS: no acute distress, patient oriented x3 and alert GENERAL APPEARANCE: cooperative and comfortable ORIENTATION/CONSCIOUSNESS: Yes awake HENMT: COMMON NORMALS: oropharynx normal Neck/C-Spine: COMMON NORMALS: no JVD Resp: COMMON NORMALS: normal respiratory effort and clear to auscultation bilaterally AUSCULTATION: clear to auscultation bilaterally Cardio: COMMON NORMALS: no JVD, regular rhythm, S1 normal heart sound present, S2 normal heart sound present and No murmurs present (Cardio) RHYTHM: regular rhythm HEART SOUNDS: S1 normal heart sound present and S2 normal heart sound present GI: COMMON NORMALS: Normal to inspection, nondistended, normoactive bowel sounds present, Soft to palpation and non-tender PALPATION: Yes Soft to palpation Extremity: COMMON NORMALS: no joint enlargement and no pedal edema Neuro: COMMON NORMALS: patient oriented x3 and moves all extremities SENSORIUM/ORIENTATION: Yes alert Skin: COMMON NORMALS: no rashes or lesions noted GENERAL SKIN EXAM: no rashes or lesions noted Urinary Catheter Management^: Pavon: Cath Placed During This Visit: yes Reason for Continuing Indwelling Catheter: Acute Urinary Retention or Obstr uction Urinary Catheter Date of Insertion: 06/30/21 Urinary Catheter Time of Insertion: 22:45 Data : 07/01/21 07:00 07/01/21 07:00 A&P Assessment and plan (1) Severe anemia: Severe symptomatic anemia due to chronic/recurrent GI bleeding. Pending endoscopic evaluation tomorrow. Responded well to PRBC transfusion. Monitor for additional bleeding. Anticoa gulation on hold for now as per discussion with her. She understands she is at increased risk of CVA from A. fib. In case source of bleeding is found, bleeding subsides, may be able to restart anticoagulation. Otherwise consideration may be needed for other means of stroke risk reduction, ROEL and ACD. TSH normal. B12, folic acid normal. Globulin okay. Reticulocyte percent is elevated, although per RPI may have hypoproliferation. Haptoglobin, LDH nonsuggestive of hemolysis. She reports suspecting recurrent anal fissure bleeding. Status: Acute (2) Fatigue associated with anemia: Status: Acute Attestations Medical Necessity Statement*: Continue admission for assessment and management of severe symptomatic anemia, GI blood loss. Coding Level of Care Code Acute Human Services Care Specialist for g Fwd Exam Comprehensive Diagnoses Severe anemia D64.9 Fatigue associated with anemia D64.9
[2021-07-01] MEDS: ondansetron 2 mg/ML SDV 2 mL 4 MG IVP (21:40)
[2021-07-02] VITALS (17 sets, daily range): BP systolic 97–132; BP diastolic 44–81; PULSE 66–93; RESP 16–18; TEMP 36.1–37.2; O2SAT 94–99
[2021-07-02 03:25] LABS: Basophils % 0.3 %; Eosinophils # 0.1 10^3/uL (0.0-0.8); Eosinophils % 1.2 %; Hematocrit 24.5 % (37.0-47.0); Hemoglobin 7.6 g/dL (11.5-15.3); Lymphocytes % 19.6 %; Mean Corpuscular Hemoglobin 29.6 pg (28.0-34.0); Mean Corpuscular Volume 95.3 fl (81-99); Mean Platelet Volume 10.5 fL (7.4-10.4); Monocytes # 1.2 10^3/uL (0.2-0.9); Monocytes % 12.2 %; Neutrophils # 6.72 10^3/uL (1.8-7.7); Nucleated Red Blood Cells # 0.1 /100WBC; Nucleated Red Blood Cells % 0.7 %; Platelet Count 196 10^3/cmm (130-400); Red Blood Count 2.57 10^6/uL (4.1-5.3); Red Cell Distribution Width 15.5 % (12.1-15.1); White Blood Count 10.2 10^3/uL (4.0-10.0)
--- NOTE | 2021-07-02 08:46 | PC.NURSE ---
patient taken for EGD
--- NOTE | 2021-07-02 08:57 | ANES.PREANE2 ---
Documented by User: Jo Baumann CRNA 07/02/21 08:58 Pre-Anesthetic Assessment Pre-Anesthetic Assessment: Height/Weight: Height 1.55 m Weight 74.843 kg Temp Pulse Resp BP Pulse Ox 98.1 F 82 16 104/54 95 07/02/21 07:25 07/02/21 07:25 07/02/21 07:25 07/02/21 07:25 07/02/21 07:25 Preop Diagnosis: severe anemia Proposed Procedure: Operation Date: 07/02/21 11:30 Proposed Procedures p EGD(Not Applicable) - Chele Suarez MD s Colonoscopy(Not Applicable) - Chele Suarez MD Last intake: Intake Last Liquid Date 07/02/21 Last Liquid Time 00:00 Social: Social History: No alcohol and No tobacco Exam: Pre-Anes Outpt Exam: alert, oriented x 3, clear to auscultation bilaterally and regular rate & rhythm Airway: Submandibular: WNL Cervical ROM: WNL MP: 2 Dentition: False History/ROS: No significant history except as noted Pulmonary: Pulmonary: None reported CV/HEM: CV/HEM: Afib, Anemia and HTN : : None reported Hepatic: Hepatic: None reported GI: GI: GERD Metabolic: Metabolic: Thyroid Musc/skel: Musc/skel: RA Neuropsych: Neuropsych: None reported Anesthetic Plan: ASA status: 3 Anesthesia: Anesthesia Evaluation and MAC Risk of > 500 ml blood loss (7ml/kg in children): No Meds/Allergies Current Medications: Current Medications Generic Name Dose Route Start Last Admin Trade Name Freq PRN Reason Stop Dose Admin Atorvastatin Calci um 20 mg 07/01/21 09:00 07/01/21 08:07 Atorvastatin 40 Mg Tablet PO 20 mg DAILY MARK Administration Bupropion HCl 150 mg 07/01/21 09:00 07/01/21 08:08 Bupropion Xl (24 Hr) 150 Mg Tablet PO 150 mg DAILY MARK Administration Citalopram Hydrobr omide 20 mg 07/01/21 09:00 07/01/21 09:49 Citalopram 20 Mg Tablet PO Not Given DAILY MARK Levothyroxine Sodi um 175 mcg 07/01/21 09:00 07/01/21 08:07 Levothyroxine 17 5 Mcg Tablet PO 175 mcg DAILY MARK Administration Losartan Potassium 50 mg 07/01/21 09:00 07/01/21 09:49 Losartan 50 Mg T ablet PO Not Given DAILY MARK Metoprolol Tartrat e 25 mg 07/01/21 09:00 07/01/21 17:32 Metoprolol Tartr ate 25 Mg Tablet PO 25 mg BID MARK Administration Ondansetron HCl 4 mg 06/30/21 21:42 07/01/21 21:40 Ondansetron 2 Mg /Ml Sdv 2 Ml IVP 4 mg Q8H PRN Administration vomiting, or N/V if npo Pantoprazole Sodiu m 40 mg 07/01/21 09:00 07/01/21 17:[address] 40 Mg Tablet PO 40 mg BID MARK Administration PFSH Anesthesia PFSH: Medical History Hypertension Intermittent atrial fibrillation Rheumatoid arthritis Surgical History Hx of cholecystectomy Data Anesthesia CBC & Chem 7: 07/02/21 03:00 07/01/21 07:00 Other Labs: Laboratory Results - last 48 hr 06/30/21 06/30/21 06/30/21 16:24 16:24 16:24 WBC 11.5 H RBC 1.30 L Hgb 3.9 L* Hct 13.1 L* MCV 100.8 H MCH 30.0 MCHC 29.8 L RDW 15.2 H Plt Count 225 MPV 10.6 H Neut % (Auto) 72.8 Lymph % (Auto) 15.7 [place] % (Auto) 10.0 Eos % (Auto) 0.0 Baso % (Auto) 0.1 Reticulocyte % (Auto) Neut # (Auto) 8.33 H Lymph # (Auto) 1.8 [place] # (Auto) 1.2 H Eos # (Auto) 0.0 Baso # (Auto) 0.0 Nucleated RBC % (auto) 0.9 Nucleated RBCs # 0.1 Retic Production Index Haptoglobin PT 16.10 H INR 1.25 H Sodium 136 Potassium 4.2 Chloride 104 Carbon Dioxide 24 Anion Gap 12.2 BUN 32 H Creatinine 0.8 GFR Calculation Not Reportable Glucose 119 H Calculated Osmolality 290 Calcium 8.2 L Iron TIBC % Saturation Unsat Iron Binding Ferritin Total Bilirubin GGT AST ALT Alkaline Phosphatase Lactate Dehydrogenase Creatine Kinase 29 Troponin T Baseline Troponin T Hi Sens 6Hr Troponin T Hi Sens 6Hr Delta C-Reactive Protein 0.9 Total Protein Albumin Globulin Vitamin B12 Folate TSH Urine Color Urine Appearance Urine pH Ur Specific [place] Urine Protein Urine Glucose (UA) Urine Ketones Urine Blood Urine Nitrate Urine Bilirubin Urine Urobilinogen Ur Leukocyte Esterase SARS-CoV-2 Ag (Rapid) Blood Type Rho(D) Type Antibody Screen Crossmatch 06/30/21 06/30/21 06/30/21 16:24 16:24 16:24 WBC RBC Hgb Hct MCV MCH MCHC RDW Plt Count MPV Neut % (Auto) Lymph % (Auto) [place] % (Auto) Eos % (Auto) Baso % (Auto) Reticulocyte % (Auto) Neut # (Auto) Lymph # (Auto) [place] # (Auto) Eos # (Auto) Baso # (Auto) Nucleated RBC % (auto) Nucleated RBCs # Retic Production Index Haptoglobin 129.0 PT INR Sodium Potassium Chloride Carbon Dioxide Anion Gap BUN Creatinine GFR Calculation Glucose Calculated Osmolality Calcium Iron 9 L TIBC 295 % Saturation 3.0 L Unsat Iron Binding 286 Ferritin 8 L Total Bilirubin GGT 10 AST 14 ALT 11 Alkaline Phosphatase Lactate Dehydrogenase 119 L Creatine Kinase Troponin T Baseline 12 H Troponin T Hi Sens 6Hr Troponin T Hi Sens 6Hr Delta C-Reactive Protein Total Protein Albumin Globulin Vitamin B12 618 Folate TSH Urine Color Urine Appearance Urine pH Ur Specific [place] Urine Protein Urine Glucose (UA) Urine Ketones Urine Blood Urine Nitrate Urine Bilirubin Urine Urobilinogen Ur Leukocyte Esterase SARS-CoV-2 Ag (Rapid) Blood Type Rho(D) Type Antibody Screen Crossmatch 06/30/21 06/30/21 06/30/21 16:24 16:24 17:42 WBC RBC Hgb Hct MCV MCH MCHC RDW Plt Count MPV Neut % (Auto) Lymph % (Auto) [place] % (Auto) Eos % (Auto) Baso % (Auto) Reticulocyte % (Auto) 10.6 H Neut # (Auto) Lymph # (Auto) [place] # (Auto) Eos # (Auto) Baso # (Auto) Nucleated RBC % (auto) Nucleated RBCs # Retic Production Index Haptoglobin PT INR Sodium Potassium Chloride Carbon Dioxide Anion Gap BUN Creatinine GFR Calculation Glucose Calculated Osmolality Calcium Iron TIBC % Saturation Unsat Iron Binding Ferritin Total Bilirubin GGT AST ALT Alkaline Phosphatase Lactate Dehydrogenase Creatine Kinase Troponin T Baseline Troponin T Hi Sens 6Hr Troponin T Hi Sens 6Hr Delta C-Reactive Protein Total Protein Albumin Globulin Vitamin B12 Folate > 20.0 TSH Urine Color Urine Appearance Urine pH Ur Specific [place] Urine Protein Urine Glucose (UA) Urine Ketones Urine Blood Urine Nitrate Urine Bilirubin Urine Urobilinogen Ur Leukocyte Esterase SARS-CoV-2 Ag (Rapid) Blood Type O Positive Rho(D) Type Positive Antibody Screen Negative Crossmatch See Detail 06/30/21 06/30/21 06/30/21 17:42 21:00 22:21 WBC RBC Hgb Hct 12.8 L* MCV MCH MCHC RDW Plt Count MPV Neut % (Auto) Lymph % (Auto) [place] % (Auto) Eos % (Auto) Baso % (Auto) Reticulocyte % (Auto) 10.8 H Neut # (Auto) Lymph # (Auto) [place] # (Auto) Eos # (Auto) Baso # (Auto) Nucleated RBC % (auto) Nucleated RBCs # Retic Production Index 3.46 Haptoglobin PT INR Sodium Potassium Chloride Carbon Dioxide Anion Gap BUN Creatinine GFR Calculation Glucose Calculated Osmolality Calcium Iron TIBC % Saturation Unsat Iron Binding Ferritin Total Bilirubin GGT AST ALT Alkaline Phosphatase Lactate Dehydrogenase Creatine Kinase Troponin T Baseline Troponin T Hi Sens 6Hr 17.24 H Troponin T Hi Sens 6Hr Delta 5.24 C-Reactive Protein Total Protein Albumin Globulin Vitamin B12 Folate TSH Urine Color Urine Appearance Urine pH Ur Specific [place] Urine Protein Urine Glucose (UA) Urine Ketones Urine Blood Urine Nitrate Urine Bilirubin Urine Urobilinogen Ur Leukocyte Esterase SARS-CoV-2 Ag (Rapid) Negative Blood Type Rho(D) Type Antibody Screen Crossmatch 06/30/21 07/01/21 07/01/21 22:40 07:00 07:00 WBC 11.7 H RBC 2.54 L Hgb 7.5 L D Hct 23.7 L D MCV 93.3 D MCH 29.5 MCHC 31.6 D RDW 14.8 Plt Count 186 MPV 10.7 H Neut % (Auto) 62.8 Lymph % (Auto) 22.2 [place] % (Auto) 13.5 Eos % (Auto) 0.3 Baso % (Auto) 0.5 Reticulocyte % (Auto) Neut # (Auto) 7.34 Lymph # (Auto) 2.6 [place] # (Auto) 1.6 H Eos # (Auto) 0.0 Baso # (Auto) 0.1 Nucleated RBC % (auto) 0.3 Nucleated RBCs # 0.0 Retic Production Index Haptoglobin PT INR Sodium 138 Potassium 3.9 Chloride 106 Carbon Dioxide 24 Anion Gap 11.9 BUN 27 H Creatinine 0.7 GFR Calculation Not Reportable Glucose 105 Calculated Osmolality 291 Calcium 8.0 L Iron TIBC % Saturation Unsat Iron Binding Ferritin Total Bilirubin 0.8 GGT AST 15 ALT 11 Alkaline Phosphatase 37 Lactate Dehydrogenase Creatine Kinase Troponin T Baseline Troponin T Hi Sens 6Hr Troponin T Hi Sens 6Hr Delta C-Reactive Protein Total Protein 5.0 L Albumin 3.3 L Globulin 1.7 Vitamin B12 Folate TSH 1.08 Urine Color Yellow Urine Appearance Clear Urine pH 5 Ur Specific [place] 1.010 Urine Protein Neg Urine Glucose (UA) Norm Urine Ketones 1+ H Urine Blood Neg Urine Nitrate Negative Urine Bilirubin Neg Urine Urobilinogen Norm Ur Leukocyte Esterase Negative SARS-CoV-2 Ag (Rapid) Blood Type Rho(D) Type Antibody Screen Crossmatch 07/02/21 03:00 WBC 10.2 H RBC 2.57 L Hgb 7.6 L Hct 24.5 L MCV 95.3 MCH 29.6 MCHC 31.0 RDW 15.5 H Plt Count 196 MPV 10.5 H Neut % (Auto) 66.0 Lymph % (Auto) 19.6 [place] % (Auto) 12.2 Eos % (Auto) 1.2 Baso % (Auto) 0.3 Reticulocyte % (Auto) Neut # (Auto) 6.72 Lymph # (Auto) 2.0 [place] # (Auto) 1.2 H Eos # (Auto) 0.1 Baso # (Auto) 0.0 Nucleated RBC % (auto) 0.7 Nucleated RBCs # 0.1 Retic Production Index Haptoglobin PT INR Sodium Potassium Chloride Carbon Dioxide Anion Gap BUN Creatinine GFR Calculation Glucose Calculated Osmolality Calcium Iron TIBC % Saturation Unsat Iron Binding Ferritin Total Bilirubin GGT AST ALT Alkaline Phosphatase Lactate Dehydrogenase Creatine Kinase Troponin T Baseline Troponin T Hi Sens 6Hr Troponin T Hi Sens 6Hr Delta C-Reactive Protein Total Protein Albumin Globulin Vitamin B12 Folate TSH Urine Color Urine Appearance Urine pH Ur Specific [place] Urine Protein Urine Glucose (UA) Urine Ketones Urine Blood Urine Nitrate Urine Bilirubin Urine Urobilinogen Ur Leukocyte Esterase SARS-CoV-2 Ag (Rapid) Blood Type Rho(D) Type Antibody Screen Crossmatch Cardiac Studies: No Data to Display Documented by User: Goldy Landin 07/02/21 11:53 PFSH Anesthesia PFSH: Medical History Hypertension Intermittent atrial fibrillation Rheumatoid arthritis Surgical History Hx of cholecystectomy Data Anesthesia CBC & Chem 7: 07/02/21 03:00 07/01/21 07:00 Cardiac Studies: No Data to Display
[2021-07-02] MEDS: sodium chloride 0.9% 1,000 ML 30 ML IV (08:59)
--- NOTE | 2021-07-02 11:53 | ANE.PACU2 ---
Inpatient post-anesthesia follow up: Airway intact: Yes Vital signs: Temperature 97.7 F Pulse Rate [Right Radial] 100 Pulse Rate 76 Respiratory Rate 16 Blood Pressure [Ri ght Arm] 125/53 Blood Pressure 100/54 Pulse Oximetry 98 Oxygen Delivery Me thod Room Air Oxygen Flow Rate Fraction of Inspir ed Oxygen Hydration adequate: Yes Nausea and vomiting: No Pain level: 2 Mental status: Baseline
[2021-07-02 15:14] LABS: Coronavirus Test Green County Not Detected
[2021-07-02] MEDS: acetaminophen 325 mg Tablet 650 MG PO (15:49)
[2021-07-02 17:43] LABS: Hemoglobin 7.1 g/dL (11.5-15.3)
[2021-07-02] MEDS: metoprolol tartrate 25 mg Tablet PO (17:43)
[2021-07-02] MEDS: pantoprazole DR 40 mg Tablet PO (17:43)
[2021-07-02] MEDS: sodium chloride 0.9% (100 ml) 100 ML 300 ML (18:40)
--- NOTE | 2021-07-02 20:11 | P.PN_ITS ---
Subjective Subjective: Interval history: Denies any symptoms. Somewhat groggy after endoscopy, but waking up nicely by the time I am there, and about to have some broth for dinner. Denies pain. Vitals/I&O/Wt Last Vital Signs Temp 98.1 F 07/02/21 19:53 Pulse 76 07/02/21 19:53 Resp 17 07/02/21 19:53 BP 111/66 07/02/21 19:53 Pulse Ox 96 07/02/21 19:53 07/02/21 07/02/21 07/02/21 06:59 14:59 22:59 Intake Total 440 / 440 600 / 1040 Balance 440 / 440 600 / 1040 Physical Exam Const: COMMON NORMALS: no acute distress, patient oriented x3 and alert GENERAL APPEARANCE: cooperative and comfortable ORIENTATION/CONSCIOUSNESS: Yes awake HENMT: COMMON NORMALS: oropharynx normal Neck/C-Spine: COMMON NORMALS: no JVD Resp: COMMON NORMALS: normal respiratory effort and clear to auscultation bilaterally AUSCULTATION: clear to auscultation bilaterally Cardio: COMMON NORMALS: no JVD, regular rhythm, S1 normal heart sound present, S2 normal heart sound present and No murmurs present (Cardio) RHYTHM: regular rhythm HEART SOUNDS: S1 normal heart sound present and S2 normal heart sound present GI: COMMON NORMALS: Normal to inspection, nondistended, normoactive bowel sounds present, Soft to palpation and non-tender PALPATION: Yes Soft to palpation Extremity: COMMON NORMALS: no joint enlargement and no pedal edema Neuro: COMMON NORMALS: patient oriented x3 and moves all extremities SENSORIUM/ORIENTATION: Yes alert Skin: COMMON NORMALS: no rashes or lesions noted GENERAL SKIN EXAM: no rashes or lesions noted Urinary Catheter Management^: Pavon: Cath Placed During This Visit: yes, but has since been removed by the nurse Reason for Continuing Indwelling Catheter: Decision to DC Catheter Urinary Catheter Date of Insertion: 06/30/21 Urinary Catheter Time of Insertion: 22:45 Date Urinary Catheter Removed: 07/02/21 Time Urinary Catheter Discontinued: 10:24 Data : 07/02/21 16:30 07/01/21 07:00 Micro: Microbiology 07/02/21 02:00 Occult Blood (FIT) - Final Stool A&P Assessment and plan (1) Severe anemia: Discussed with her findings on endoscopy as discussed with GI physician. Noted melanotic stool in colon, cecum, without active source of bleeding. No active bleeding on upper endoscopy. Discussed with patient regarding bleeding event and the small intestine which appears to be resolving, hemoglobin appears to be stable from yesterday to today with good response to. Procedures fusion. We recheck hemoglobin this afternoon, it is down to 7.1, given recent bleeding, very borderline hemoglobin, she is agreeable for additional 1 unit. BC transfusion, reassessment of hemoglobin and response to transfusion in the morning. Subsequently possibly discharge. She also understands recommendation to hold anticoagulation or aspirin (not currently on aspirin) and seek further evaluation given we have not identified a source of the bleeding, and she would benefit from long-term anticoagulation due to atrial fibrillation. Additional evaluation may include capsule endoscopy or deep enteroscopy with gastroenterology which is not available here. She states had previously been following with gastroenterology in [place] with regards to biliary stenting, and intends to follow-up with them again. Severe symptomatic anemia due to chronic/recurrent GI bleeding. ROEL and ACD. TSH normal. B12, folic acid normal. Globulin okay. Reticulocyte percent is elevated, although per RPI may have hypoproliferation. Haptoglobin, LDH nonsuggestive of hemolysis. Status: Acute (2) Fatigue associated with anemia: Status: Acute Attestations Medical Necessity Statement*: Continue admission for cyst management of upper GI bleeding. Additional preprocedure infusion given downtrending hemoglobin, recent anticoagulation. Additional reassessment of hemoglobin. Coding Level of Care Code Acute Family Dinner Service Specialist for Aminata Gaspar Diagnoses Severe anemia D64.9 Fatigue associated with anemia D64.9
[2021-07-03] VITALS: BP 100/65; PULSE 78; RESP 17; TEMP 36.6; TEMP 36.7; O2SAT 95
[2021-07-03 00:57] VITALS: BP 108/61; PULSE 69; RESP 16; TEMP 36.4; O2SAT 96
[2021-07-03 03:46] VITALS: BP 123/81; PULSE 70; RESP 18; TEMP 36.6; O2SAT 96
[2021-07-03 04:53] LABS: Basophils % 0.4 %; Eosinophils # 0.3 10^3/uL (0.0-0.8); Eosinophils % 3.7 %; Hemoglobin 8.8 g/dL (11.5-15.3); Lymphocytes # 1.6 10^3/uL (0.8-4.8); Lymphocytes % 19.9 %; Mean Corpuscular HGB Conc 31.4 g/dL (30.0-36.0); Mean Corpuscular Hemoglobin 29.6 pg (28.0-34.0); Mean Corpuscular Volume 94.3 fl (81-99); Mean Platelet Volume 10.2 fL (7.4-10.4); Monocytes # 1.1 10^3/uL (0.2-0.9); Monocytes % 13.1 %; Neutrophils # 5.11 10^3/uL (1.8-7.7); Neutrophils % 62.4 %; Nucleated Red Blood Cells # 0.1 /100WBC; Nucleated Red Blood Cells % 0.6 %; Platelet Count 193 10^3/cmm (130-400); Red Blood Count 2.97 10^6/uL (4.1-5.3); Red Cell Distribution Width 15.1 % (12.1-15.1); White Blood Count 8.2 10^3/uL (4.0-10.0)
[2021-07-03 05:31] VITALS: PULSE 70
[2021-07-03 08:28] VITALS: BP 104/56; PULSE 67; RESP 18; TEMP 36.9; O2SAT 98
[2021-07-03] MEDS: metoprolol tartrate 25 mg Tablet PO (08:29)
[2021-07-03] MEDS: buPROPion XL (24 HR) 150 mg Tablet PO (08:29)
[2021-07-03] MEDS: atorvastatin 40 mg Tablet 20 MG PO (08:29)
[2021-07-03] MEDS: levothyroxine 175 mcg Tablet PO (08:29)
[2021-07-03] MEDS: citalopram 20 mg Tablet PO (08:30)
[2021-07-03] MEDS: pantoprazole DR 40 mg Tablet PO (08:30)
[2021-07-03] MEDS: sodium chloride 0.9% (100 ml) 100 ML (08:33)
--- NOTE | 2021-07-03 09:22 | PM.DCS ---
Discharge Providers Date of Admission: 06/30/21 19:07 Date of Discharge: July 03, 2021 Attending Provider at Admission: Linh Hough MD Attending Provider at Discharge: Oswaldo Nava Primary Care Provider: Emmie Taylor MD Diagnoses at Discharge Discharge Diagnosis (1) Severe anemia: Status: Acute (2) Fatigue associated with anemia: Status: Acute Reason for Visit Reason for Visit: GENERALIZED WEAKNESS/ CAN'T USE LEGS Hospital Course Hospital Course Pleasant 75-year-old lady with history of HTN, HLD, RA, proximal A. fib and has been on anticoagulation with Eliquis 5 mg was admitted after finding of severe symptomatic anemia, hemoglobin 3.9, after presenting with fatigue over the past month or so, with recurrent bloody stools. Blood thinner was held. She received 2 units. BC transfusion. Was kept on bowel rest initially. Received PPI. She was additionally assessed by endoscopy, both upper and lower, with no abnormalities noted on EGD. No active bleeding noted on colonoscopy either, but in the more proximal GI tract noted to have some melanotic stool coming from higher up in the small intestine. After previously transfusion her hemoglobin remained relatively stable, 7.5-7.6. Trended up slightly to 7.1 last night and she received additional previously transfusion with good response today up to 8.8. Endoscopic evaluation findings discussed with performing physician, as well as with her. We discussed that we have not identified the source of the recent bleeding event. Due to this recommendation has been for her to hold both her medications despite risk of CVA secondary to atrial fibrillation. Is recommended that she do to long-term overall potential benefit from anticoagulation, seek additional evaluation with GI specialist./Evaluation may include capsule endoscopy or deep enteroscopy. She states she will be following up with her primary provider, and will also be reaching out to her gravel inspector whom she had been seen in the past due to an unrelated medical problem. She is otherwise doing well today. Her initial symptoms of fatigue, exertional intolerance have resolved. She is tolerating clear liquid diet. She feels ready to return home and continue evaluation on outpatient basis. Physical Exam Const: COMMON NORMALS: no acute distress, patient oriented x3 and alert GENERAL APPEARANCE: cooperative and comfortable ORIENTATION/CONSCIOUSNESS: Yes awake HENMT: COMMON NORMALS: oropharynx normal Neck/C-Spine: COMMON NORMALS: no JVD Resp: COMMON NORMALS: normal respiratory effort and clear to auscultation bilaterally AUSCULTATION: clear to auscultation bilaterally Cardio: COMMON NORMALS: no JVD, regular rhythm, S1 normal heart sound present, S2 normal heart sound present and No murmurs present (Cardio) RHYTHM: regular rhythm HEART SOUNDS: S1 normal heart sound present and S2 normal heart sound present GI: COMMON NORMALS: Normal to inspection, nondistended, normoactive bowel sounds present, Soft to palpation and non-tender PALPATION: Yes Soft to palpation Extremity: COMMON NORMALS: no joint enlargement and no pedal edema Neuro: COMMON NORMALS: patient oriented x3 and moves all extremities SENSORIUM/ORIENTATION: Yes alert Skin: COMMON NORMALS: no rashes or lesions noted GENERAL SKIN EXAM: no rashes or lesions noted Urinary Catheter Management^: Pavon: Cath Placed During This Visit: yes, but has since been removed by the nurse Reason for Continuing Indwelling Catheter: Decision to DC Catheter Urinary Catheter Date of Insertion: 06/30/21 Urinary Catheter Time of Insertion: 22:45 Date Urinary Catheter Removed: 07/02/21 Time Urinary Catheter Discontinued: 10:24 Discharge Data Data Completed and Pending: Completed Studies During Hospitalization Category Date Time Status CT chest abd pel w con* Urgent Cat Scan 06/30/21 19:21 Completed XR chest 1[place] [id number] Stat Exams 06/30/21 14:58 Completed Pending at discharge Category Date Time Status Complete Blood Co unt w/Auto AM LABS Lab 07/04/21 04:00 Ordered Leukocyte Reduced RBC Stat Lab 06/30/21 17:42 Results Type and Screen R outine Lab 06/30/21 17:42 Results Labs from last 24 hours 07/03/21 07/02/21 07/01/21 04:41 16:30 17:37 WBC 8.2 RBC 2.97 L Hgb 8.8 L 7.1 L Hct 28.0 L MCV 94.3 MCH 29.6 MCHC 31.4 RDW 15.1 Plt Count 193 MPV 10.2 Neut % (Auto) 62.4 Lymph % (Auto) 19.9 Whitman % (Auto) 13.1 Eos % (Auto) 3.7 Baso % (Auto) 0.4 Neut # (Auto) 5.11 Lymph # (Auto) 1.6 Whitman # (Auto) 1.1 H Eos # (Auto) 0.3 Baso # (Auto) 0.0 Nucleated RBC % (a uto) 0.6 Nucleated RBCs # 0.1 Nasal/Oral COVID-1 9 PCR Not detected Blood Type Rho(D) Type Antibody Screen Crossmatch 06/30/21 17:42 WBC RBC Hgb Hct MCV MCH MCHC RDW Plt Count MPV Neut % (Auto) Lymph % (Auto) Whitman % (Auto) Eos % (Auto) Baso % (Auto) Neut # (Auto) Lymph # (Auto) Whitman # (Auto) Eos # (Auto) Baso # (Auto) Nucleated RBC % (a uto) Nucleated RBCs # Nasal/Oral COVID-1 9 PCR Blood Type O Positive Rho(D) Type Positive Antibody Screen Negative Crossmatch See Detail Vitals: Last Vital Signs Temp 98.4 F 07/03/21 08:28 Pulse 67 07/03/21 08:28 Resp 18 07/03/21 08:28 BP 104/56 07/03/21 08:28 Pulse Ox 98 07/03/21 08:28 Discharge Plan Discharge Patient Disposition: Home Condition: Stable Prescriptions: Continued multivitamin Tablet 1 tab PO DAILY RF: 0 losartan 50 mg tablet 50 mg PO DAILY RF: 0 Euthyrox 175 mcg tablet 175 mcg PO DAILY RF: 0 Zyrtec 10 mg Tablet 10 mg PO DAILY PRN (Reason: Allergy Symptoms) RF: 0 calcium 500 mg Tablet 500 mg PO BID RF: 0 acetaminophen 500 mg Tablet 1,000 mg PO TID PRN (Reason: Pain) RF: 0 citalopram 20 mg tablet 20 mg PO DAILY RF: 0 Vitamin C 500 mg Tablet 500 mg PO DAILY RF: 0 pravastatin 20 mg tablet 20 mg PO DAILY RF: 0 hydroxychloroquine 200 mg tablet 200 mg PO BID RF: 0 bupropion HCl 150 mg tablet extended release 24 hr 150 mg PO DAILY RF: 0 metoprolol tartrate 25 mg tablet 25 mg PO BID RF: 0 Probiotic 20 billion cell Capsule 20,000 mmu cells PO DAILY RF: 0 biotin 1 mg Capsule 1 mg PO DAILY RF: 0 Changed Nexium 20 mg Capsule,Delayed Release(Dr/Ec) 20 mg PO BIDWM Qty: 0 RF: 0 Discontinued Eliquis 5 mg tablet 5 mg PO BID RF: 0 Discharge Orders: Discharge Order (Routine); Ordered 07/03/21 Ordered By: Oswaldo Nava Referrals: Emmie Taylor MD [Primary Care Provider] - 4-7 days Discharge Diet: Advance as tolerated and Cardiac Discharge Activity: Increase activity as tolerated Patient Instructions: GI Discharge Instructions, Opioid Safety Activity Restrictions/Additional Instructions: Please follow-up with your primary provider for reassessment of your blood count. In case you noticed any additional blood in your stool, please seek medical attention without delay. Please do not take any more blood thinner medication until additional assessment and you are cleared to do so by your primary provider. Consider also discontinuation of citalopram as bleeding events with this medication sometimes have been reported. As discussed please seek together with your current provider additional evaluation by gastroenterology to find the source of bleeding, with additional relations that may include capsule endoscopy or deep enteroscopy. Discharge Attestations Time Spent in Discharge Care*: greater than 30 min Quality Metrics Clinical Quality Measures During this hospital stay, did patient experience: None Coding Level of Care Code Acute Chg FW DC note Diagnoses Severe anemia D64.9 Fatigue associated with anemia D64.9
--- NOTE | 2021-07-03 10:12 | PC.SOCIAL ---
IMM Update: pg 2 of IMM updated w/ patient and copy provided.
[2021-07-03 11:26] VITALS: BP 104/56; PULSE 67; RESP 18; TEMP 36.9; O2SAT 98
--- NOTE | 2021-07-04 08:55 | PC.SOCIAL ---
discharge follow up call made, spoke with patient. she reports she feels great, took a shower this morning and is doing great. no new medications prescribed. patient stopped taking Eliquis. Patient aware of follow up appointment with PCP. denies questions or concerns.
== END 2021-07-03 11:27 | disposition home or self-care (01) | DRG 379 ==
LOC: ER 21:52 → MEDSURG 23:34
PROVIDERS: Internal Medicine; Nurse Practitioner Family; Admitting Provider Student in an Organized Health Care Education/Training Program; Emergency Provider Physician Assistant; PCP Family Medicine; Visit Provider Internal Medicine
PROC: 0DJ08ZZ Inspection of Upper Intestinal Tract, Via Natural or Artificial Opening Endoscopic (ICD-10-PCS; CPT 43235; principal; 2021-07-02 11:30)
PROC: 0DJD8ZZ Inspection of Lower Intestinal Tract, Via Natural or Artificial Opening Endoscopic (ICD-10-PCS; CPT 45378; 2021-07-02 11:30)
DX: K92.2 Gastrointestinal hemorrhage, unspecified (principal); D50.0 Iron deficiency anemia secondary to blood loss (chronic); M06.9 Rheumatoid arthritis, unspecified; I10 Essential (primary) hypertension; E78.5 Hyperlipidemia, unspecified; I48.91 Unspecified atrial fibrillation; K59.00 Constipation, unspecified; Z90.49 Acquired absence of other specified parts of digestive tract; Z79.890 Hormone replacement therapy; Z20.822 Contact with and (suspected) exposure to COVID-19; D64.9 Anemia, unspecified
CPT/HCPCS: 36415; 36430; 43235; 45378; 51702; 51798; 71045; 71260; 74177; 80048; 80053; 81003; 82274; 82550; 82607; 82728; 82746; 82977; 83010; 83540; 83550; 83615; 84443; 84450; 84460; 84484; 85014; 85018; 85025; 85045; 85610; 86140; 86850; 86900; 86920; 87426; 87635; 93005; 96361; 96374; 99285; J2405; J2704; J7030; P9016; Q9967